=== PATIENT | female | born 1955 | race Caucasian/White ===

== ENCOUNTER 2020-02-23 08:09 | Outpatient (REF) | payer MEDICARE, OTHER, SELFPAY ==
[2020-02-23 11:17] LABS: Hematocrit 42.9 % (37-47); Hemoglobin 13.6 g/dl (12.0-16.0); Mean Corpuscular HGB Conc 31.7 g/dl (31.0-35.0); Mean Corpuscular Hemoglobin 28.8 pg (27.0-33.0); Mean Corpuscular Volume 90.9 fL (80-98); Mean Platelet Volume 9.2 fL (9.4-12.3); Platelet Count 286 X10*3/uL (160-400); Red Blood Count 4.72 X10*6/uL (4.20-5.50); Red Cell Distribution Width 13.2 % (11.0-16.0); White Blood Count 7.4 X10*3/uL (4.8-10.8)
[2020-02-23 11:37] LABS: Glucose Urine UA NEG (NEG); Leukocyte Esterase Urine 2+ (NEG); Nitrite Urine NEG (NEG); PH 5.5 (5.0-8.0); Specific Gravity - Urine >= 1.030 (1.005-1.025); Urine Blood NEG (NEG); Urine Ketones NEG (NEG); Urine Protein NEG (NEG-TRACE)
[2020-02-23 11:46] LABS: Color Urine YELLOW
[2020-02-23 11:47] LABS: Appearance Urine CLOUDY
[2020-02-23 11:52] LABS: Alanine Aminotransferase 21 U/L (0-31); Albumin Level 4.4 g/dL (3.5-5.0); Alkaline Phosphatase 79 U/L (39-117); Anion Gap 14 (12-20); Aspartate Amino Transferase 22 U/L (5-31); Bilirubin Total 0.8 mg/dL (0.0-1.0); Blood Urea Nitrogen 29 mg/dL (9-16); Calcium 9.2 mg/dL (8.4-10.2); Carbon Dioxide 29 mmol/L (22-29); Chloride 101 mmol/L (96-108); Cholesterol 215 mg/dL; Estimated Glomerular Filt Rate > 60; Glucose Fasting 103 mg/dL (60-99); HDL Cholesterol 73 mg/dL; LDL Cholesterol Calculated 125 mg/dl; Potassium 4.4 mmol/l (3.3-5.1); Sodium 140 mmol/L (135-145); Total Protein 7.8 g/dL (6.5-8.0); Triglycerides 85 mg/dL
[2020-02-23 11:57] LABS: TSH reflex Free T4 1.67 mIU/mL (0.32-4.0)
[2020-02-23 12:04] LABS: Amorphous Sediment Urine 4+ /LPF; RBC Urine 0 /HPF (0); Squamous Epithelial Cell Urine TRACE /LPF
== END 2020-02-23 08:10 | disposition home or self-care (01) ==
LOC: HO.HMGCLDS 08:09
PROVIDERS: PCP Internal Medicine; Visit Provider Internal Medicine
DX: Z00.00 Encounter for general adult medical examination without abnormal findings (principal); Z13.220 Encounter for screening for lipoid disorders; Z13.29 Encounter for screening for other suspected endocrine disorder
CPT/HCPCS: 36415; 80053; 80061; 81001; 84443; 85027

== ENCOUNTER 2020-08-28 08:59 | Outpatient (REF) | payer MEDICARE, OTHER, SELFPAY ==
[2020-08-28 10:52] LABS: Alanine Aminotransferase 21 U/L (0-31); Albumin Level 4.3 g/dL (3.5-5.0); Alkaline Phosphatase 80 U/L (39-117); Anion Gap 11 (12-20); Aspartate Amino Transferase 20 U/L (5-31); Bilirubin Total 0.6 mg/dL (0.0-1.0); Blood Urea Nitrogen 21 mg/dL (9-16); Calcium 9.5 mg/dL (8.4-10.2); Carbon Dioxide 31 mmol/L (22-29); Chloride 103 mmol/L (96-108); Cholesterol 216 mg/dL; Estimated Glomerular Filt Rate > 60; Glucose Fasting 108 mg/dL (60-99); HDL Cholesterol 65 mg/dL; LDL Cholesterol Calculated 131 mg/dl; Potassium 4.8 mmol/L (3.3-5.1); Sodium 140 mmol/L (135-145); Total Protein 7.4 g/dL (6.5-8.0); Triglycerides 101 mg/dL
== END 2020-08-28 09:00 | disposition home or self-care (01) ==
LOC: HO.LAB 08:59
PROVIDERS: PCP Internal Medicine; Visit Provider Internal Medicine
DX: Z00.00 Encounter for general adult medical examination without abnormal findings (principal); F41.9 Anxiety disorder, unspecified; E78.5 Hyperlipidemia, unspecified
CPT/HCPCS: 36415; 80053; 80061

== ENCOUNTER 2021-04-24 08:39 | Outpatient (REF) | payer MEDICARE, OTHER, SELFPAY ==
[2021-04-24 11:35] LABS: Alanine Aminotransferase 27 U/L (0-31); Albumin Level 4.3 g/dL (3.5-5.0); Alkaline Phosphatase 71 U/L (39-117); Anion Gap 12 (12-20); Aspartate Amino Transferase 24 U/L (5-31); Bilirubin Total 0.6 mg/dL (0.0-1.0); Blood Urea Nitrogen 23 mg/dL (9-16); Calcium 9.8 mg/dL (8.4-10.2); Carbon Dioxide 30 mmol/L (22-29); Chloride 101 mmol/L (96-108); Cholesterol 223 mg/dL; Estimated Glomerular Filt Rate > 60; Glucose Fasting 103 mg/dL (60-99); HDL Cholesterol 71 mg/dL; LDL Cholesterol Calculated 129 mg/dl; Potassium 4.3 mmol/L (3.3-5.1); Sodium 139 mmol/L (135-145); Total Protein 7.8 g/dL (6.5-8.0); Triglycerides 119 mg/dL
[2021-04-24 11:39] LABS: Estimated Average Glucose 105 mg/dL; Hemoglobin A1c % 5.3 %
[2021-04-24 11:55] LABS: TSH reflex Free T4 1.74 uIU/mL (0.32-4.0)
== END 2021-04-24 08:40 | disposition home or self-care (01) ==
LOC: HO.HMGCLDS 08:39
PROVIDERS: PCP Internal Medicine; Visit Provider Internal Medicine
DX: E78.5 Hyperlipidemia, unspecified (principal); F41.9 Anxiety disorder, unspecified; R73.9 Hyperglycemia, unspecified
CPT/HCPCS: 36415; 80053; 80061; 83036; 84443

== ENCOUNTER 2021-10-29 | Outpatient (REF) | payer MEDICARE, OTHER, SELFPAY ==
--- NOTE | ~2021-10-29 | CT_ITS ---
EXAMINATION: CT ANGIOGRAM OF THE CHEST WITH AND WITHOUT CONTRAST (CT PULMONARY ANGIOGRAM FOR PE) CLINICAL INFORMATION: Shortness of breath. COMPARISON: None TECHNIQUE: Prior to contrast administration, noncontrast localization images were obtained. Subsequently, multidetector volumetric imaging was performed from the thoracic inlet to below the diaphragms following the administration of 80 mL Omnipaque 350 intravenous contrast. No contrast reaction reported Sagittal, coronal, and MIP oblique sagittal reformatted images were obtained on the CT workstation, uploaded to PACS, and reviewed. This CT examination was performed using dose optimization techniques as appropriate, variously including the following: *Automated exposure control *Adjustment of mA and/or kV according to patient size (this includes techniques or standardized protocols for targeted exams where dose is matched to indication/reason for exam; i.e. extremities or head) *Use of iterative reconstruction technique Total exam dose-length product 158 mGy-cm FINDINGS: QUALITY OF STUDY/CONTRAST BOLUS: Satisfactory. PULMONARY ARTERIES: No central or segmental pulmonary emboli. THORACIC AORTA: No aneurysm or dissection. LUNGS/PLEURA/AIRWAYS: Mild elevation of the right diaphragm. Mild left basilar atelectasis. No focal consolidation, nodules or masses. MEDIASTINUM: The visualized thyroid gland is unremarkable. Normal heart size. No pericardial effusion. No hilar or mediastinal lymphadenopathy. No evidence of septal bowing or right heart strain. CHEST WALL/AXILLA: No axillary or internal mammary lymphadenopathy. OSSEOUS STRUCTURES: No acute or suspicious osseous abnormality. UPPER ABDOMEN: Unremarkable. No reflux of contrast into the hepatic veins to suggest elevated right heart pressures. CT/CT angio chest PE protocol IMPRESSION: 1. No evidence for pulmonary embolism. 2. No acute cardiopulmonary process. VTE: Negative.
[2021-10-29] MEDS: iohexoL 350 MG/ML 100 ML INFUS..BTL IV (14:41)
== END 2021-10-29 00:01 ==
LOC: HO.CT
PROVIDERS: PCP Internal Medicine; Visit Provider Internal Medicine
DX: R06.02 Shortness of breath (principal)
CPT/HCPCS: 71275; Q9967

== ENCOUNTER 2021-10-29 10:36 | Outpatient (REF) | payer MEDICARE, OTHER, SELFPAY ==
[2021-10-29 12:23] LABS: Blood Urea Nitrogen 24 mg/dL (9-16); Estimated Glomerular Filt Rate > 60
[2021-10-29 17:16] LABS: D Dimer High Sensitivity 166 NG/ML
== END 2021-10-29 10:37 | disposition home or self-care (01) ==
LOC: HO.HMGCLDS 10:36
PROVIDERS: PCP Internal Medicine; Visit Provider Internal Medicine
DX: R06.02 Shortness of breath (principal)
CPT/HCPCS: 36415; 82565; 84520; 85379

== ENCOUNTER 2022-02-19 08:46 | Outpatient (REF) | payer MEDICARE, OTHER, SELFPAY ==
[2022-02-19 11:23] LABS: MANUAL DIFF FLAG NO
[2022-02-19 11:48] LABS: Basophils Percent Auto 0.6 % (0-2); Eosinophils Absolute Auto 0.5 X10*3/uL (0.0-0.4); Eosinophils Percent Auto 6.9 % (0-4); Hematocrit 42.6 % (37.0-47.0); Hemoglobin 13.9 g/dl (12.0-16.0); Imm Gran Abs Auto 0.02 X10*3/uL (0.00-0.03); Imm Gran Pct Auto 0.3 % (0.0-0.4); Lymphocytes Absolute Auto 1.9 X10*3/uL (1.2-4.9); Mean Corpuscular HGB Conc 32.6 g/dl (31.0-35.0); Mean Corpuscular Hemoglobin 28.5 pg (27.0-33.0); Mean Corpuscular Volume 87.5 fL (80.0-98.0); Mean Platelet Volume 9.4 fL (9.4-12.3); Monocytes Absolute Auto 0.5 X10*3/uL (0.1-1.2); Monocytes Percent Auto 7.9 % (2-11); Neutrophils Absolute Auto 3.6 x10*3/uL (2.0-8.3); Neutrophils Percent Auto 55.3 % (45-73); Platelet Count 263 X10*3/uL (160-400); Red Blood Count 4.87 X10*6/uL (4.20-5.50); Red Cell Distribution Width 13.2 % (11.0-16.0); White Blood Count 6.5 X10*3/uL (4.8-10.8)
[2022-02-19 11:49] LABS: B Type Natriuretic Peptide < 10 pg/mL (<100)
[2022-02-19 12:35] LABS: Alanine Aminotransferase 23 U/L (0-31); Albumin Level 4.5 g/dL (3.5-5.0); Alkaline Phosphatase 75 U/L (39-117); Anion Gap 10 (12-20); Aspartate Amino Transferase 20 U/L (5-31); Bilirubin Total 0.7 mg/dL (0.0-1.0); Blood Urea Nitrogen 25 mg/dL (9-16); Calcium 10.1 mg/dL (8.4-10.2); Carbon Dioxide 32 mmol/L (22-29); Chloride 102 mmol/L (96-108); Cholesterol 200 mg/dL; Estimated Glomerular Filt Rate > 60; Glucose Fasting 106 mg/dL (60-99); HDL Cholesterol 69 mg/dL; LDL Cholesterol Calculated 114 mg/dl; Potassium 4.4 mmol/L (3.3-5.1); Sodium 140 mmol/L (135-145); TSH reflex Free T4 1.45 uIU/mL (0.32-4.0); Total Protein 7.9 g/dL (6.5-8.0); Triglycerides 87 mg/dL
== END 2022-02-19 08:47 | disposition home or self-care (01) ==
LOC: HO.HMGCLDS 08:46
PROVIDERS: PCP Internal Medicine; Visit Provider Internal Medicine
DX: Z00.00 Encounter for general adult medical examination without abnormal findings (principal); R06.02 Shortness of breath; I10 Essential (primary) hypertension; R73.9 Hyperglycemia, unspecified
CPT/HCPCS: 36415; 80053; 80061; 83880; 84443; 85025

== ENCOUNTER 2022-06-16 15:47 | Outpatient (REF) | payer MEDICARE, OTHER, SELFPAY ==
--- NOTE | 2022-06-16 17:30 | PFT_ITS ---
FLOWS: 1. FEV1 of 69% of predicted at 2.05 L. 2. FVC 61% of predicted at 2.35 L. 3. FEV1 to FVC ratio of 0.87. 4. No bronchodilator response. LUNG VOLUMES: 1. Total lung capacity 69% of predicted at 4.15 L. 2. Residual volume 66% of predicted at 1.63 L. 3. Slow vital capacity 71% of predicted at 2.52 L. 4. Expiratory reserve volume 32% of predicted at 0.32 L. 5. Diffusion capacity is mildly decreased. 6. Diffusion capacity corrects to normal after adjustment for alveolar ventilation. IMPRESSION: Moderate restrictive ventilatory defect with no bronchodilatory response. Decreased expiratory reserve volume suggests extrathoracic restriction, likely secondary to abdominal obesity. Decreased diffusion capacity, restrictive ventilatory defects suggest underlying pulmonary parenchymal disease. Clinical correlation is advised. MD LINDA Wade/MODL / [id number]
== END 2022-06-16 15:48 | disposition home or self-care (01) ==
LOC: HO.RESP 15:47
PROVIDERS: PCP Internal Medicine; Visit Provider Internal Medicine
DX: J45.909 Unspecified asthma, uncomplicated (principal)
CPT/HCPCS: 94060; 94727; 94729

== ENCOUNTER 2022-10-05 11:01 | Outpatient (AMB) | payer MEDICARE, OTHER, SELFPAY ==
[2022-10-05 11:02] VITALS: BP 128/78; PULSE 100; O2SAT 95; BMI 36.3
--- NOTE | 2022-10-05 11:02 | A.OFFPC_ITS ---
Vital Signs 10/05/22 11:02 Height 5 ft 10 in Weight 253 lb BMI 36.3 BP 128/78 Blood Pressure Location Lt brachial Position Sitting Pulse 100 Pulse Source Pulse Oximeter Pulse Oximetry (%) 95 Oxygen Delivery Method Room Air Intake Visit Reasons: 4 month follow up, hyperlipidemia, asthma Allergies penicillin G Allergy (Unknown, Verified 10/05/22 11:03) rash/change in personality citalopram Adverse Reaction (Unknown, Verified 10/05/22 11:03) nose bleed From PEN-VEE K Allergy (Severe, Uncoded 05/28/22 11:07) RASH, SOB Medication List - Last Reconciled 10/05/22 by Nava Pat MD albuterol sulfate 90 mcg/actuation (ProAir HFA) 1 inh inhalation QID aspirin 81 mg PO DAILY Flovent HFA 110 mcg/actuation (fluticasone propionate) 1 puff inhalation BID NS flu vac 2020 [id number](PF) 60 mcg (15 mcg x 4)/0.5 mL 0.5 mL IM DIRECTED fluticasone propionate 50 mcg/actuation 1 spray intranasal DAILY hydroxyzine HCl 10 mg PO BEDTIME PRN oiagkjqifrqt-qvuj-lrhla acid 18-400 mg-mcg (Centrum Women) 1 tab PO DAILY naproxen sodium (Aleve) 220 mg PO BID PRN pneumoc 13-prakash conj-dip cr(PF) 0.5 mL IM DIRECTED scopolamine base 1 patch transdermal Q3D PRN sertraline 100 mg (2 x 50 mg) PO DAILY Tobacco use date assessed: 10/05/22 Fall risk assessment: No Falls in past year Last assessed Fall Risk: 10/05/22 Dental Screening Dental Screen Date: 10/05/22 Did you have a dental visit in the last 12 months?: Yes Did you have a dental problem in the last 6 months where you did not have access to dental care?: No Was dental information given to patient?: No HPI 4 month follow up, hyperlipidemia, asthma HPI Details Pt presents for f/u asthma better on Flovent. Pt c/o left-sided lower back and L buttock pain worse when lying on the L side. Patient denies pain radiating to lower extremities or while walking. [facility] Medical History Abnormal colonoscopy Annual physical exam Anxiety Asthma Asthmatic bronchitis HTN (hypertension) Hyperglycemia Hyperlipidemia Mammogram normal Normal Pap smear Palpitation Surgical History H/O colonoscopy History of bilateral knee replacement History of foot surgery History of knee surgery Family History Father Dementia Parkinson disease Mother Dementia Mental health disorder Brother No problems noted. Son No problems noted. Son No problems noted. Daughter No problems noted. Social History Housing: House Alcohol intake: current Alcohol intake frequency: a few times a week Patient Tobacco Use Status: Never used Tobacco e-Cigarette/Vaping Use: Never Used Second Hand Smoke Exposure: Yes service: No Current occupational status: retired Cognitive needs: No Hearing needs: No Vision needs: No Questionnaire Thrive Questionnaire Date Thrive assessed: 03/26/22 AUDIT C Alcohol Use Questionnaire (AUDIT-C) 1. How often do you have a drink containing alcohol?: Never 3. How often do you have six or more drinks on one occasion?: Never Total Score: 0 Score Reviewed/Action Taken: Yes MARCELO-7 AMB Questionnaire MARCELO-7 Date MARCELO - 7 assessed: 04/28/21 Source: Developed by Drs. Stanley Aquino, Fifi Lucero, Brandon Mcrae and colleagues, with an educational luke from [employer]. Review of Systems Const All systems reviewed & are unremarkable except as noted in HPI and below Reports no additional complaints Eyes Reports no additional complaints ENT Reports no additional complaints Card Reports no additional complaints Resp Reports no additional complaints GI Reports no additional complaints Reports no additional complaints Physical exam (Primary Care) Vital Signs: Last Vital Signs Pulse 100 10/05/22 11:02 BP 128/78 10/05/22 11:02 Pulse Ox 95 10/05/22 11:02 Oxygen Delivery Method Room Air 10/05/22 11:02 BMI result Body Mass Index 36.3 Tobacco/Smoking Status: Tobacco use Status Tobacco use date assessed 10/05/22 10/05/22 11:04 Patient Tobacco Use Status Never used Tobacco 10/05/22 11:04 e-Cigarette/Vaping Use Never Used 10/05/22 11:04 Thrive Assessment: Date of Thrive Assessment Date Thrive assessed 03/26/22 10/05/22 11:04 Const General: no acute distress HENMT Face and sinus: Yes normal facial exam Neck Neck: Yes supple Resp Effort & Inspection: normal respiratory effort Auscultation: clear to auscultation bilaterally Cardio Rhythm: regular rhythm Heart sounds: S1 normal heart sound present and S2 normal heart sound present GI Inspection: Yes normal to inspection Palpation (GI): Soft to palpation Percussion: Yes normal to percussion Back/Spine/Pelvis Other: Slightly decreased range of motion lumbar spine, straight leg rising 90 degrees bilaterally, slight tenderness over left SI joint, full range of motion of both hips Assessment and Plan Assessment & Plan (1) Asthma: Comment: PFT's 07/2015 Mild obstructive airway disorder, improves with broncho, mild restrictive pulmonary disease Code(s): J45.909 - Unspecified asthma, uncomplicated (2) Hyperglycemia: Code(s): R73.9 - Hyperglycemia, unspecified Plan: Continue ADA diet, check A1c in 6 months before the physical (3) Sciatica: Code(s): M54.30 - Sciatica, unspecified side Plan: Meloxicam and baclofen are prescribed. patient was given lower back exercises. Patient will referred for PT if not improved Orders: Orders Comprehensive [place]. Panel Fast 6 Months E78.5 - Hyperlipidemia, unspecified, I10 - Essential (primary) hypertension, R73.9 - Hyperglycemia, unspecified, Z00.00 - Encounter for general adult medical examination without abnormal findings Hemoglobin A1c 6 Months E78.5 - Hyperlipidemia, unspecified, I10 - Essential (primary) hypertension, R73.9 - Hyperglycemia, unspecified, Z00.00 - Encounter for general adult medical examination without abnormal findings Lipid Panel 6 Months E78.5 - Hyperlipidemia, unspecified, I10 - Essential (primary) hypertension, R73.9 - Hyperglycemia, unspecified, Z00.00 - Encounter for general adult medical examination without abnormal findings TSH reflex Free T4 6 Months E78.5 - Hyperlipidemia, unspecified, I10 - Essential (primary) hypertension, R73.9 - Hyperglycemia, unspecified, Z00.00 - Encounter for general adult medical examination without abnormal findings Complete Blood Count Auto Diff 6 Months E78.5 - Hyperlipidemia, unspecified, I10 - Essential (primary) hypertension, R73.9 - Hyperglycemia, unspecified, Z00.00 - Encounter for general adult medical examination without abnormal findings Medications: New meloxicam 15 mg PO DAILY 10 tabs 0RF baclofen 10 mg PO BEDTIME 14 tabs 0RF Refilled sertraline 100 mg (2 x 50 mg) PO DAILY 180 tabs 3RF Coding Level of Care Code Est Pt Level 4 (80150) Diagnoses Asthma J45.909 Hyperglycemia R73.9 Sciatica M54.30
== END 2022-10-05 11:48 | disposition home or self-care (01) ==
PROVIDERS: PCP Internal Medicine; Visit Provider Internal Medicine
DX: J45.909 Unspecified asthma, uncomplicated (principal); R73.9 Hyperglycemia, unspecified; M54.30 Sciatica, unspecified side
CPT/HCPCS: 99214

== ENCOUNTER 2023-03-29 09:06 | Outpatient (REF) | payer MEDICARE, OTHER, SELFPAY ==
[2023-03-29 10:55] LABS: MANUAL DIFF FLAG NO
[2023-03-29 11:08] LABS: Basophils Absolute Auto 0.1 X10*3/uL (0.0-0.2); Basophils Percent Auto 0.8 % (0-2); Eosinophils Absolute Auto 0.3 X10*3/uL (0.0-0.4); Hematocrit 40.6 % (37.0-47.0); Hemoglobin 13.4 g/dl (12.0-16.0); Imm Gran Abs Auto 0.02 X10*3/uL (0.00-0.03); Imm Gran Pct Auto 0.3 % (0.0-0.4); Lymphocytes Absolute Auto 1.8 X10*3/uL (1.2-4.9); Lymphocytes Percent Auto 27.7 % (20-40); Mean Corpuscular Hemoglobin 29.3 pg (27.0-33.0); Mean Corpuscular Volume 88.6 fL (80.0-98.0); Mean Platelet Volume 9.2 fL (9.4-12.3); Monocytes Absolute Auto 0.5 X10*3/uL (0.1-1.2); Monocytes Percent Auto 7.9 % (2-11); Neutrophils Absolute Auto 3.9 x10*3/uL (2.0-8.3); Neutrophils Percent Auto 59.3 % (45-73); Platelet Count 244 X10*3/uL (160-400); Red Blood Count 4.58 X10*6/uL (4.20-5.50); Red Cell Distribution Width 13.6 % (11.0-16.0); White Blood Count 6.5 X10*3/uL (4.8-10.8)
[2023-03-29 11:17] LABS: Estimated Average Glucose 100 mg/dL; Hemoglobin A1c % 5.1 % (<6.0)
[2023-03-29 11:27] LABS: Alanine Aminotransferase 20 U/L (0-31); Albumin Level 4.2 g/dL (3.5-5.0); Alkaline Phosphatase 72 U/L (39-117); Anion Gap 10 (12-20); Aspartate Amino Transferase 21 U/L (5-31); Bilirubin Total 0.6 mg/dL (0.0-1.0); Blood Urea Nitrogen 28 mg/dL (9-16); Calcium 10.4 mg/dL (8.4-10.2); Carbon Dioxide 29 mmol/L (22-29); Chloride 104 mmol/L (96-108); Cholesterol 195 mg/dL (<200); Estimated Glomerular Filt Rate > 60; Glucose Fasting 110 mg/dL (60-99); HDL Cholesterol 65 mg/dL (>40); LDL Cholesterol Calculated 116 mg/dL (<100); Potassium 4.2 mmol/L (3.3-5.1); Sodium 139 mmol/L (135-145); Total Protein 7.8 g/dL (6.5-8.0); Triglycerides 73 mg/dL (<150)
[2023-03-29 11:48] LABS: TSH reflex Free T4 1.46 uIU/mL (0.32-4.0)
== END 2023-03-29 09:07 | disposition home or self-care (01) ==
LOC: HO.HMGCLDS 09:06
PROVIDERS: PCP Internal Medicine; Visit Provider Internal Medicine
DX: Z00.00 Encounter for general adult medical examination without abnormal findings (principal); R73.9 Hyperglycemia, unspecified; I10 Essential (primary) hypertension; E78.5 Hyperlipidemia, unspecified
CPT/HCPCS: 36415; 80053; 80061; 83036; 84443; 85025

== ENCOUNTER 2023-03-31 10:24 | Outpatient (AMB) | payer MEDICARE, OTHER, SELFPAY ==
[2023-03-31 10:29] VITALS: BP 140/80; PULSE 85; O2SAT 98; BMI 36.2
--- NOTE | 2023-03-31 10:29 | MHC.PC.OV ---
Vital Signs 03/31/23 10:29 Height 5 ft 10 in Weight 252 lb BMI 36.2 BP 140/80 H Blood Pressure Location Lt brachial Position Sitting Pulse 85 Pulse Source Pulse Oximeter Pulse Oximetry (%) 98 Oxygen Delivery Method Room Air Intake Visit Reasons: PE Intake Note: Pt is here today for PE. Allergies penicillin G Allergy (Unknown, Verified 03/31/23 10:34) rash/change in personality citalopram Adverse Reaction (Unknown, Verified 03/31/23 10:34) nose bleed From PEN-VEE K Allergy (Severe, Uncoded 03/31/23 10:34) RASH, SOB Medication List - Last Reconciled 03/31/23 by Nava Pat MD albuterol sulfate 90 mcg/actuation (ProAir HFA) 1 inh inhalation QID aspirin 81 mg PO DAILY Flovent HFA 110 mcg/actuation (fluticasone propionate) 1 puff inhalation BID NS flu vac 2020 [id number](PF) 60 mcg (15 mcg x 4)/0.5 mL 0.5 mL IM DIRECTED fluticasone propionate 50 mcg/actuation 1 spray intranasal DAILY hydroxyzine HCl 10 mg PO BEDTIME PRN segrfupxbkor-qqdd-qydrj acid 18-400 mg-mcg (Centrum Women) 1 tab PO DAILY naproxen sodium (Aleve) 220 mg PO BID PRN scopolamine base 1 patch transdermal Q3D PRN sertraline 100 mg (2 x 50 mg) PO DAILY Tobacco use date assessed: 03/31/23 Fall risk assessment: No Falls in past year Last assessed Fall Risk: 03/31/23 Dental Screening Dental Screen Date: 03/31/23 Did you have a dental visit in the last 12 months?: Yes Did you have a dental problem in the last 6 months where you did not have access to dental care?: No Was dental information given to patient?: Patient has dentist HPI PE HPI Details Pt presents for PE. Asthma is stable on Flovent. Patient has started exercising 4 times a week and has noticed improved exercise tolerance when walking up the stairs. [facility] Medical History Hyperglycemia HTN (hypertension) Mammogram normal Normal Pap smear Hyperlipidemia Abnormal colonoscopy Anxiety Asthma Asthmatic bronchitis Palpitation Annual physical exam Surgical History H/O colonoscopy History of bilateral knee replacement History of foot surgery History of knee surgery Family History Father Dementia Parkinson disease Mother Dementia Mental health disorder Brother No problems noted. Son No problems noted. Son No problems noted. Daughter No problems noted. Social History Housing: House Alcohol intake: current Alcohol intake frequency: a few times a week Patient Tobacco Use Status: Never used Tobacco e-Cigarette/Vaping Use: Never Used Second Hand Smoke Exposure: Yes service: No Current occupational status: retired Cognitive needs: No Hearing needs: No Vision needs: No Questionnaire Thrive Questionnaire Date Thrive assessed: 03/26/22 AUDIT C Alcohol Use Questionnaire (AUDIT-C) 1. How often do you have a drink containing alcohol?: 4 or more times a week 2. How many drinks containing alcohol do you have on a typical day when you are drinking?: 1 or 2 3. How often do you have six or more drinks on one occasion?: Never Total Score: 4 MARCELO-7 AMB Questionnaire MARCELO-7 Date MARCELO - 7 assessed: 04/28/21 Feeling nervous, anxious, or on edge: 1 = Several days Not being able to stop or control worryin = Several days Worrying too much about different things: 1 = Several days Trouble relaxin = Several days Being so restless that it is hard to sit still: 0 = Not at all Becoming easily annoyed or irritable: 0 = Not at all Feeling afraid as if something awful might happen: 1 = Several days Total MARCELO-7 score (0-4 normal; 5-9 mild; 10-14 moderate; 15-21 severe): 5 Source: Developed by Drs. Stanley Aquino, Fifi Lucero, Brandon Mcrae and colleagues, with an educational luke from [employer]. Review of Systems Const All systems reviewed & are unremarkable except as noted in HPI and below Reports no additional complaints Eyes Reports no additional complaints ENT Reports no additional complaints Card Reports no additional complaints Resp Reports no additional complaints GI Reports no additional complaints Reports no additional complaints Physical exam (Primary Care) Vital Signs: Last Vital Signs Pulse 85 03/31/23 10:29 BP 140/80 H 03/31/23 10:29 Pulse Ox 98 03/31/23 10:29 Oxygen Delivery Method Room Air 03/31/23 10:29 BMI result Body Mass Index 36.2 Tobacco/Smoking Status: Tobacco use Status Tobacco use date assessed 03/31/23 03/31/23 10:41 Patient Tobacco Use Status Never used Tobacco 03/31/23 10:41 e-Cigarette/Vaping Use Never Used 03/31/23 10:31 Thrive Assessment: Date of Thrive Assessment Date Thrive assessed 03/26/22 03/31/23 10:31 Const General: no acute distress HENMT Head: Yes normal to inspection Ears: hearing grossly normal bilaterally Face and sinus: Yes normal facial exam Mouth: Normal oral and palatal mucosa present Throat: Yes posterior oropharynx normal Eyes General: appearance normal, both eyes and all related structures Neck Neck: Yes no lymphadenopathy and Yes supple Resp Effort & Inspection: normal respiratory effort Auscultation: clear to auscultation bilaterally Cardio Rhythm: regular rhythm Heart sounds: S1 normal heart sound present, S2 normal heart sound present and Murmur heart sound present systolic II/ GI Inspection: Yes normal to inspection Palpation (GI): Soft to palpation Percussion: Yes normal to percussion Auscultation: normal bowel sounds Assessment and Plan Assessment & Plan (1) Asthma: Comment: PFT's 07/2015 Mild obstructive airway disorder, improves with broncho, mild restrictive pulmonary disease Code(s): J45.909 - Unspecified asthma, uncomplicated Plan: Continue Flovent, check PFT (2) SOB (shortness of breath): Code(s): R06.02 - Shortness of breath (3) HTN (hypertension): Comment: off atenolol Code(s): I10 - Essential (primary) hypertension Plan: Low-sodium diet increase physical activity weight loss discussed with the patient follow-up in 4 months (4) Hyperglycemia: Code(s): R73.9 - Hyperglycemia, unspecified Plan: ADA diet increase exercise weight loss discussed with the patient (5) Annual physical exam: Code(s): Z00.00 - Encounter for general adult medical examination without abnormal findings Plan: Well-balanced diet regular physical activity weight loss discussed with the patient. She is up-to-date with mammogram at [facility] and colonoscopy (6) Heart murmur: Code(s): R01.1 - Cardiac murmur, unspecified Plan: Obtain echo Orders: Orders PFT pulmonary function test Today J45.909 - Unspecified asthma, uncomplicated, R06.02 - Shortness of breath CA echo transthoracic complete Today R01.1 - Cardiac murmur, unspecified Coding Level of Care Code Est Pt Prev Care >65y(54874) Diagnoses Asthma J45.909 SOB (shortness of breath) R06.02 HTN (hypertension) I10 Hyperglycemia R73.9 Annual physical exam Z00.00 Heart murmur R01.1
== END 2023-03-31 11:25 | disposition home or self-care (01) ==
PROVIDERS: PCP Internal Medicine; Visit Provider Internal Medicine
DX: Z00.00 Encounter for general adult medical examination without abnormal findings (principal); J45.909 Unspecified asthma, uncomplicated; R06.02 Shortness of breath; I10 Essential (primary) hypertension; R73.9 Hyperglycemia, unspecified; R01.1 Cardiac murmur, unspecified
CPT/HCPCS: 99397

== ENCOUNTER → 2023-05-25 14:47 | Outpatient (REF) | payer MEDICARE, OTHER, SELFPAY ==
--- NOTE | 2023-05-25 14:51 | CA_ITS ---
Transthoracic Echocardiogram Patient (Last, First, Middle): Sruthi Delaney J Gender: Female Date of : 1955 Age: 67 Procedure Date: 05/25/2023 Procedure Type: Transthoracic Echocardiogram Location: OP Height: 177.8 cm Weight: 114.31 kg BSA: 2.30 m2 Heart Rate: 65 bpm BP: 118 / 72 mmHg [employer] Machine Operator: SB Referring MD: Nava Pat MD Energy Audit Advisor: Luis Padilla MD Symptoms: CARDIAC MURMUR, UNSPEC Study Quality: Adequate w contrast ECG Rhythm: Sinus Conclusions: - 1. Normal LV ejection fraction with LVEF of 55-60% with grade 1 diastolic dysfunction 2. Normal cardiac valvular Dopplers 3. Upper limits of normal ascending aortic size at 3.6 cm 4. Normal RV systolic pressure 5. No gross pericardial effusion Findings Procedure Information Contrast agent, definity, is being given per protocol without apparent complications. Left Ventricle Normal left ventricular size, thickness, and systolic function. The visually estimated ejection fraction is between 55-60%. Spectral Doppler is indicative of an impaired relaxation filling pattern. E/E prime ratio is <8, consistent with normal filling pressures. Evidence suggests grade I (mild) diastolic dysfunction. Right Ventricle Normal right ventricular cavity size and systolic function. Atria The left atrium is likely dilated. There is no evidence of interatrial shunt. The right atrium is normal in size. Aortic Valve Normal aortic valve structure and function. There is no aortic valve stenosis. There is no aortic valve regurgitation. Mitral Valve Normal mitral valve structure and function. There is trace mitral valve regurgitation. There is no mitral valve stenosis. Pulmonic Valve The pulmonic valve is likely normal. There is trace pulmonic valve regurgitation. Tricuspid Valve Normal tricuspid valve structure. There is trace tricuspid valve regurgitation. The right ventricular systolic pressure is normal. The right ventricular systolic pressure is 20 mmHg. Normal right atrial pressure. There is no evidence of pulmonary hypertension. Great Vessels The pulmonary artery was not well visualized. Venous The inferior vena cava is normal in size and collapses greater than 50% with inspiration. Pericardium/Pleural There is no evidence of pericardial effusion. Prior Study Comparison No significant change compared to prior study dated: 05/04/2017. Measurements 2D Linear Measurements IVSd: 1.03 0.6-0.9/0.6-1.0 cm LVIDd: 4.80 3.9-5.3/4.2-5.9 cm LVIDd Index: 2.09 2.4-3.2/2.2-3.1 cm/m2 LVIDs: 2.96 2.0-3.6 cm LVPWd: 0.88 0.7-1.1 cm LA Diam: 4.10 2.7-3.8/3.0-4.0 cm LAIDs Index: 1.78 1.5-2.3 cm/m2 LV Mass: 198.48 67-162/88-224 g LV Mass Index: 86.30 43-95/49-115 g/m2 LVOT Diam: 2.30 3.0+(-)1.3 cm 2D Systolic Function EF 4C: 64.60 >55% EF 2C: 53.00 >55% EF BiP: 58.50 >55% Mitral Valve MV Pk E: 0.57 MV PK A: 0.78 MV Decel Time: 247.00 E/A: 0.70 E'Lateral: 7.29 E'Medial: 5.87 E/E' Med: 9.70 E/E' Lat: 7.80 PHT: 72.00 MVA PHT: 3.06 Decel [place]: 2.31 Aortic Valve AoV Pk Rpavin: 1.41 AoV Pk Grad: 8.00 COLIN: 3.00 LVOT LVOT Pk Pravin: 1.03 LVOT Mn Pravin: 0.71 LVOT VTI: 0.23 LVOT Pk Grad: 4.00 LVOT Mn Grad: 2.00 LVOT Diam: 2.30 LVOT Area: 4.15 Diastolic Function MV Pk E: 0.57 MV Pk A: 0.78 E/A: 0.70 E'Medial: 5.87 E/E' Med: 9.70 E' Laterial: 7.29 E/E' Lat: 7.80 Right Ventricle TAPSE (mm): 30.60 TVS' Pravin: 13.80 Tricuspid Valve TR Pk Pravin: 2.08 TR Pk Grad: 17.00 RA Press: 3.00 RVSP: 20.00 Great Vessels Aorta Sinus of Valsalva: 3.10 2.0-3.5 cm Ao Asc: 3.60 2.1-3.4 cm Pulmonary Veins Pulm Vein S/D 1.40 Pulmonary Valve PV Pk Pravin: 0.95 Peak PV Grad: 4.00 Updated in Other Vendor System with Status of Final Luis Padilla MD electronically signed on 05/26/2023 3:09:42 PM with status of Final
== END ==
LOC: HO.CARD 14:47
PROVIDERS: PCP Internal Medicine; Visit Provider Internal Medicine
DX: R01.1 Cardiac murmur, unspecified (principal)
CPT/HCPCS: 93306; Q9957

== ENCOUNTER → 2023-05-25 14:51 | Outpatient (BNV) | payer MEDICARE, OTHER, SELFPAY | PROVIDERS: PCP Internal Medicine; Visit Provider Internal Medicine Cardiovascular Disease | DX: I51.9 Heart disease, unspecified (principal); R01.1 Cardiac murmur, unspecified | CPT/HCPCS: 93306 ==

== ENCOUNTER 2023-08-03 08:39 | Outpatient (REF) | payer MEDICARE, OTHER, SELFPAY ==
[2023-08-03 10:28] LABS: MANUAL DIFF FLAG NO
[2023-08-03 10:36] LABS: Basophils Percent Auto 0.6 % (0-2); Eosinophils Absolute Auto 0.4 X10*3/uL (0.0-0.4); Eosinophils Percent Auto 5.9 % (0-4); Hematocrit 40.8 % (37.0-47.0); Hemoglobin 13.7 g/dl (12.0-16.0); Imm Gran Abs Auto 0.03 X10*3/uL (0.00-0.03); Imm Gran Pct Auto 0.5 % (0.0-0.4); Lymphocytes Absolute Auto 1.9 X10*3/uL (1.2-4.9); Lymphocytes Percent Auto 27.9 % (20-40); Mean Corpuscular HGB Conc 33.6 g/dl (31.0-35.0); Mean Corpuscular Volume 89.3 fL (80.0-98.0); Mean Platelet Volume 9.2 fL (9.4-12.3); Monocytes Absolute Auto 0.5 X10*3/uL (0.1-1.2); Monocytes Percent Auto 7.7 % (2-11); Neutrophils Absolute Auto 3.8 x10*3/uL (2.0-8.3); Neutrophils Percent Auto 57.4 % (45-73); Platelet Count 234 X10*3/uL (160-400); Red Blood Count 4.57 X10*6/uL (4.20-5.50); Red Cell Distribution Width 13.7 % (11.0-16.0); White Blood Count 6.7 X10*3/uL (4.8-10.8)
[2023-08-03 10:47] LABS: Estimated Average Glucose 103 mg/dL; Hemoglobin A1c % 5.2 % (<6.0)
[2023-08-03 10:58] LABS: Alanine Aminotransferase 21 U/L (0-31); Albumin Level 4.3 g/dL (3.5-5.0); Alkaline Phosphatase 77 U/L (39-117); Anion Gap 12 (12-20); Aspartate Amino Transferase 23 U/L (5-31); Bilirubin Total 0.6 mg/dL (0.0-1.0); Blood Urea Nitrogen 29 mg/dL (9-16); Calcium 9.9 mg/dL (8.4-10.2); Carbon Dioxide 28 mmol/L (22-29); Chloride 106 mmol/L (96-108); Estimated Glomerular Filt Rate > 60; Glucose Fasting 104 mg/dL (60-99); Potassium 4.1 mmol/L (3.3-5.1); Sodium 142 mmol/L (135-145); Total Protein 7.9 g/dL (6.5-8.0)
== END 2023-08-03 08:40 | disposition home or self-care (01) ==
LOC: HO.HMGCLDS 08:39
PROVIDERS: PCP Internal Medicine; Visit Provider Internal Medicine
DX: R73.9 Hyperglycemia, unspecified (principal); I10 Essential (primary) hypertension; E78.5 Hyperlipidemia, unspecified
CPT/HCPCS: 36415; 80053; 83036; 85025

== ENCOUNTER 2023-08-04 10:58 | Outpatient (AMB) | payer MEDICARE, OTHER, SELFPAY ==
--- NOTE | 2023-08-04 11:03 | MHC.PC.OV ---
Vital Signs 08/04/23 11:05 Height 5 ft 10 in Weight 254 lb BMI 36.4 BP 124/70 Blood Pressure Location Lt brachial Position Sitting Pulse 89 Pulse Source Pulse Oximeter Pulse Oximetry (%) 96 Oxygen Delivery Method Room Air Intake Visit Reasons: 4 Month F/U Intake Note: Pt is here today for 4 months follow up visit. Allergies penicillin G Allergy (Unknown, Verified 08/04/23 11:07) rash/change in personality citalopram Adverse Reaction (Unknown, Verified 08/04/23 11:07) nose bleed From PEN-VEE K Allergy (Severe, Uncoded 08/04/23 11:07) RASH, SOB Medication List - Last Reconciled 08/04/23 by Nava Pat MD albuterol sulfate 90 mcg/actuation (ProAir HFA) 1 inh inhalation QID Arnuity Ellipta 100 mcg/actuation (fluticasone furoate) 1 inh inhalation DAILY NS aspirin 81 mg PO DAILY flu vac 2020 [id number](PF) 60 mcg (15 mcg x 4)/0.5 mL 0.5 mL IM DIRECTED fluticasone propionate 50 mcg/actuation 1 spray intranasal DAILY hydroxyzine HCl 10 mg PO BEDTIME PRN [id number]-[id number]-tveiv acid 18-400 mg-mcg (Centrum Women) 1 tab PO DAILY naproxen sodium (Aleve) 220 mg PO BID PRN scopolamine base 1 patch transdermal Q3D PRN sertraline 100 mg (2 x 50 mg) PO DAILY Tobacco use date assessed: 03/31/23 Dental Screening Dental Screen Date: 03/31/23 HPI 4 Month F/U HPI Details Pt presents for f/u asthma and chronic anxiety controlled on current medications. Patient is planning a trip to [place] this summer. She has been exercising regularly and denies chest pain shortness for breath palpitations. [facility] Medical History (Updated 08/04/23 @ 11:59 by Nava Pat MD) Hyperglycemia Mammogram normal Normal Pap smear Hyperlipidemia Abnormal colonoscopy Anxiety Asthma Asthmatic bronchitis Palpitation Annual physical exam Surgical History H/O colonoscopy History of bilateral knee replacement History of foot surgery History of knee surgery Family History Father Dementia Parkinson disease Mother Dementia Mental health disorder Brother No problems noted. Son No problems noted. Son No problems noted. Daughter No problems noted. Social History Housing: House Alcohol intake: current Alcohol intake frequency: a few times a week Patient Tobacco Use Status: Never used Tobacco e-Cigarette/Vaping Use: Never Used Second Hand Smoke Exposure: Yes service: No Current occupational status: retired Cognitive needs: No Hearing needs: No Vision needs: No Questionnaire PHQ-9 Over the last 2 weeks, how often have you been bothered by any of the following problems? 1. Little interest or pleasure in doing things: not at all 2. Feeling down, depressed, or hopeless: not at all 3. Trouble falling or staying asleep, or sleeping too much: several days 4. Feeling tired or having little energy: not at all 5. Poor appetite or overeating: several days 6. Feeling bad about yourself - or that you are a failure or have let yourself or your family down: not at all 7. Trouble concentrating on things, such as reading the newspaper or watching television: not at all 8. Moving or speaking so slowly that other people could have noticed. Or the opposite - being so fidgety or restless that you have been moving around a lot more than usual: not at all 9. Thoughts that you would be better off or of hurting yourself in some way: not at all Total score: 2 Depression Screening Interpretation: Negative Depression Screening Done: Yes Source: Developed by Drs. Stanley Aquino, Fifi Lucero, Brandon Mcrae and colleagues, with an educational luke from [employer]. Thrive Questionnaire Date Thrive assessed: 08/04/23 I am a: Patient What is your living situation today?: I have a steady place to live Within the past 12 months, did the food you bought not last and you didn't have the money to get more?: Never true Within the past 12 months, did you worry whether your food would run out before you got money to buy more?: Never true Do you have trouble paying for medicines?: No Do you have trouble getting transportation to medical appointments?: No Do you have trouble paying your heating and electricity bill?: No Do you have trouble taking care of your child, family member or friend?: No Do you have trouble with day-to-day activities such as bathing, preparing meals, shopping, managing finances, etc.?: No Are you currently unemployed and looking for a job?: No Are you interested in more education?: No Please select the resources that you would like help with: None THRIVE Score: 0 MARCELO-7 AMB Questionnaire MARCELO-7 Date MARCELO - 7 assessed: 08/04/23 Feeling nervous, anxious, or on edge: 0 = Not at all Not being able to stop or control worryin = Not at all Worrying too much about different things: 0 = Not at all Trouble relaxin = Not at all Being so restless that it is hard to sit still: 0 = Not at all Becoming easily annoyed or irritable: 0 = Not at all Feeling afraid as if something awful might happen: 0 = Not at all Total MARCELO-7 score (0-4 normal; 5-9 mild; 10-14 moderate; 15-21 severe): 0 Source: Developed by Drs. Stanley Aquino, Fifi Lucero, Brandon Mcrae and colleagues, with an educational luke from [employer]. Review of Systems Const All systems reviewed & are unremarkable except as noted in HPI and below ENT Reports no additional complaints Card Reports no additional complaints Resp Reports no additional complaints GI Reports no additional complaints Physical exam (Primary Care) Vital Signs: Last Vital Signs Pulse 89 08/04/23 11:05 BP 124/70 08/04/23 11:05 Pulse Ox 96 08/04/23 11:05 Oxygen Delivery Method Room Air 08/04/23 11:05 BMI result Body Mass Index 36.4 Tobacco/Smoking Status: Tobacco use Status Tobacco use date assessed 03/31/23 08/04/23 11:03 Patient Tobacco Use Status Never used Tobacco 08/04/23 11:03 e-Cigarette/Vaping Use Never Used 08/04/23 11:03 PHQ-9: PHQ-9 Score PHQ-9: Total score 2 08/04/23 11:12 Depression Screening Interpretation: Negative Thrive Assessment: Date of Thrive Assessment Date Thrive assessed 08/04/23 08/04/23 11:12 Const General: no acute distress HENMT Head: Yes normal to inspection Eyes General: appearance normal, both eyes and all related structures Neck Neck: Yes supple Resp Effort & Inspection: normal respiratory effort Auscultation: clear to auscultation bilaterally Cardio Rhythm: regular rhythm Heart sounds: S1 normal heart sound present and S2 normal heart sound present Assessment and Plan Assessment & Plan (1) Heart murmur: Comment: Echo nl EF, NO VALVULAR ABNORMALITIES 05/2023 Code(s): R01.1 - Cardiac murmur, unspecified (2) Asthma: Comment: PFT's 07/2015 Mild obstructive airway disorder, improves with broncho, mild restrictive pulmonary disease Code(s): J45.909 - Unspecified asthma, uncomplicated Plan: Continue Arnuity and albuterol p.r.n. (3) Hyperlipidemia: Comment: Diet controlled Code(s): E78.5 - Hyperlipidemia, unspecified Plan: Continue low-cholesterol diet (4) Overweight: Code(s): E66.3 - Overweight Plan: Increase physical activity decrease caloric intake and weight loss discussed with the patient, return for physical in March (5) Anxiety: Code(s): F41.9 - Anxiety disorder, unspecified Plan: Continue Zoloft Orders: Orders Hemoglobin A1c 8 Months E55.9 - Vitamin D deficiency, unspecified, E78.5 - Hyperlipidemia, unspecified, R73.9 - Hyperglycemia, unspecified, Z00.00 - Encounter for general adult medical examination without abnormal findings Vitamin D 25-OH Total 8 Months E55.9 - Vitamin D deficiency, unspecified, E78.5 - Hyperlipidemia, unspecified, R73.9 - Hyperglycemia, unspecified, Z00.00 - Encounter for general adult medical examination without abnormal findings Comprehensive Leadore. Panel Fast 8 Months E55.9 - Vitamin D deficiency, unspecified, E78.5 - Hyperlipidemia, unspecified, R73.9 - Hyperglycemia, unspecified, Z00.00 - Encounter for general adult medical examination without abnormal findings Lipid Panel 8 Months E55.9 - Vitamin D deficiency, unspecified, E78.5 - Hyperlipidemia, unspecified, R73.9 - Hyperglycemia, unspecified, Z00.00 - Encounter for general adult medical examination without abnormal findings Complete Blood Count Auto Diff 8 Months E55.9 - Vitamin D deficiency, unspecified, E78.5 - Hyperlipidemia, unspecified, R73.9 - Hyperglycemia, unspecified, Z00.00 - Encounter for general adult medical examination without abnormal findings TSH reflex Free T4 8 Months E55.9 - Vitamin D deficiency, unspecified, E78.5 - Hyperlipidemia, unspecified, R73.9 - Hyperglycemia, unspecified, Z00.00 - Encounter for general adult medical examination without abnormal findings Medications: Refilled Arnuity Ellipta 100 mcg/actuation (fluticasone furoate) 1 inh inhalation DAILY 90 ea 3RF NS Discontinued Flovent HFA 110 mcg/actuation (fluticasone propionate) administer with spacer Discontinued Reason: Doctor's Order 1 puff inhalation BID 12 grams 4RF NS budesonide 90 mcg/actuation (Pulmicort Flexhaler) Discontinued Reason: Doctor's Order 1 inh inhalation BID 1 ea 5RF Coding Level of Care Code Est Pt Level 4 (77748) Diagnoses Heart murmur R01.1 Asthma J45.909 Hyperlipidemia E78.5 Overweight E66.3 Anxiety F41.9
[2023-08-04 11:05] VITALS: BP 124/70; PULSE 89; O2SAT 96; BMI 36.4
== END 2023-08-04 11:39 | disposition home or self-care (01) ==
PROVIDERS: PCP Internal Medicine; Visit Provider Internal Medicine
DX: R01.1 Cardiac murmur, unspecified (principal); J45.909 Unspecified asthma, uncomplicated; E78.5 Hyperlipidemia, unspecified; E66.3 Overweight; F41.9 Anxiety disorder, unspecified
CPT/HCPCS: 99214

== ENCOUNTER 2024-04-25 08:38 | Outpatient (REF) | payer MEDICARE, OTHER, SELFPAY ==
--- OUTSIDE RECORDS SUMMARY | 2024-04-25 08:56 | XMS_ITS | Continuity of Care Document ---
Author Organization [facility] Address [address] [place] [id number] Care Team Providers Care Bus And Sys Integration Senior Manager Name Role Phone Nava Pat MD Primary Care Physician [phone] [facility]counter [facility] [id number] Date(s): 03/09/24 - 04/08/[address] [id number] Attending Physician: Admsanta, Real8 Admitting Physician: [id number] Referring Physician: Admtr, Ar8 Encounter Type: Triage Allergies, Adverse Reactions, Alerts Substance Criticality Severity Reaction Reaction Severity Status penicillins Rash Active Percocet 5/325 GI Upset Activ e Medications Aleve = 220 mg, By Mouth, Every 12 hours, 0 Refills, Maintenance, 01/03/24 10:58:00 AM EDT, Partial fill upon patient request if the prescription is for a schedule II opioid drug. Start Date: 01/03/24 Status: Ordered Repeat number: 1 Judie 24 Hour Allergy = 180 mg, By Mouth, Daily in AM, 0 Refills, Maintenance, 02/09/24 10:02:00 AM EST, Partial fill upon patient request if the prescription is for a schedule II opioid drug. Start Date: 02/09/24 Status: Ordered Repeat number: 1 Arnuity Ellipta 100 mcg inhalation powder 1 puffs = 100 mcg, Inhalation, Daily in AM, # 30 each, 0 Refills, Maintenance, 02/09/24 10:29:00 AMEST, Powder, Partial fill upon patient request if the prescription is for a schedule II opioid drug. Start Date: 02/09/24 Status: Ordered Quantity: 30.0 Unit: each Repeat number: 1 aspirin 81 mg oral capsule 1 capsule = 81 mg, By Mouth, Daily, do not exceed 48 capsules in 24 hours, # 30 capsule, 0 Refills,Maintenance, 02/09/24 10:02:00 AM EST, Capsule, Partial fill upon patient request if the prescription is for a schedule II opioid drug. Start Date: 02/09/24 Status: Ordered Quantity: 30.0 Unit: capsule Repeat number: 1 Flonase = 50 mcg, Daily, PRN Other, for seasonal allergies, 0 Refills, Maintenance, 02/09/24 10:01:00 AM EST, Partial fill upon patient request if the prescription is for a schedule II opioid drug. Start Date: 02/09/24 Status: Ordered Repeat number: 1 Multivitamin By Mouth, Daily, 0 Refills, Maintenance, 01/03/24 10:58:00 AM EDT, Partial fill upon patient request if the prescription is for a schedule II opioid drug. Start Date: 01/03/24 Status: Ordered Repeat number: 1 ProAir HFA 90 mcg/inh inhalation aerosol with adapter 1, puffs, Inhalation, 4 times a day, PRN, Refills 0, Maintenance, 10/21/17 2:01:42 PM EDT Start Date: 10/21/17 Status: Ordered Repeat number: 1 Sertraline = 100 mg, By Mouth, Daily in AM, 0 Refills, Maintenance, 01/03/24 10:58:00 AM EDT, Partial fill upon patient request if the prescription is for a schedule II opioid drug. Start Date: 01/03/24 Status: Ordered Repeat number: 1 turmeric By Mouth, Daily, with vivienne, 0 Refills, Maintenance, 03/30/24 10:52:00 AM EST, Partial fill upon patient request if the prescription is for a schedule II opioid drug. Start Date: 03/30/24 Status: Ordered Repeat number: 1 Problem List Condition Confirmation Course Effective Dates Status Health St atus Informant Anxiety Confirmed Active Asthma Confirmed Active History of pulmonary embolism Confirmed Active History of DVT of lower extremity Confirmed Active HTN (hypertension) Confirmed Active Palpitations Confirmed Active PAD (peripheral artery disease) Confirmed Active Severe obesity (BMI 35.0-39.9) with comorbidity Confirmed Active Social History Social History Type Response Smoking Status Never (less than 100 in lifetime) entered on: 01/03/24 Sex Sex Representation Female (finding) Patient Care team information Care Team Personnel Name: Nava Pat MD Position: [facility] Physician - Primary Care Member Role: PCP Address: [address] [place], [place] [address] Telecom: Name: Renetta Riojas RN Position: [facility] SN RN Member Role: Primary Care Nurse Name: Padmini Childs RN Position: [facility] RN Member Role: Primary Care Nurse Name: Jaye Coffey RN Position: [facility] RN Member Role: Primary Care Nurse Name: Aydin Jimenez RN Position: [facility] RN Member Role: Primary Care Nurse Care Team Related Persons Name: JERARDO ZHENG Insurance Providers Guarantor name: VERONICA ZHENG Health Plan Information #: 1 Payer: MEDICARE PART B OUTPT Member Number: NA Policy Number: NA Group Number: NA Health Plan Information #: 2 Payer: [facility] Member Number: NA Policy Number: NA Group Number: NA
[2024-04-25 10:18] LABS: MANUAL DIFF FLAG NO
[2024-04-25 10:29] LABS: Basophils Percent Auto 0.6 % (0-2); Eosinophils Absolute Auto 0.3 X10*3/uL (0.0-0.4); Eosinophils Percent Auto 3.8 % (0-4); Hematocrit 41.6 % (37.0-47.0); Hemoglobin 13.9 g/dl (12.0-16.0); Imm Gran Abs Auto 0.05 X10*3/uL (0.00-0.03); Imm Gran Pct Auto 0.7 % (0.0-0.4); Lymphocytes Absolute Auto 1.7 X10*3/uL (1.2-4.9); Lymphocytes Percent Auto 23.2 % (20-40); Mean Corpuscular HGB Conc 33.4 g/dl (31.0-35.0); Mean Corpuscular Hemoglobin 29.8 pg (27.0-33.0); Mean Corpuscular Volume 89.1 fL (80.0-98.0); Mean Platelet Volume 8.9 fL (9.4-12.3); Monocytes Absolute Auto 0.5 X10*3/uL (0.1-1.2); Monocytes Percent Auto 7.4 % (2-11); Neutrophils Absolute Auto 4.6 x10*3/uL (2.0-8.3); Neutrophils Percent Auto 64.3 % (45-73); Platelet Count 260 X10*3/uL (160-400); Red Blood Count 4.67 X10*6/uL (4.20-5.50); Red Cell Distribution Width 13.5 % (11.0-16.0); White Blood Count 7.2 X10*3/uL (4.8-10.8)
[2024-04-25 10:51] LABS: Alanine Aminotransferase 31 U/L (0-31); Albumin Level 4.4 g/dL (3.5-5.0); Alkaline Phosphatase 78 U/L (39-117); Anion Gap 10 (12-20); Aspartate Amino Transferase 32 U/L (5-31); Bilirubin Total 0.6 mg/dL (0.0-1.0); Blood Urea Nitrogen 26 mg/dL (9-16); Calcium 9.9 mg/dL (8.4-10.2); Carbon Dioxide 30 mmol/L (22-29); Chloride 105 mmol/L (96-108); Cholesterol 215 mg/dL (<200); Estimated Glomerular Filt Rate > 60; Glucose Fasting 101 mg/dL (60-99); HDL Cholesterol 74 mg/dL (>40); LDL Cholesterol Calculated 119 mg/dL (<100); Potassium 4.3 mmol/L (3.3-5.1); Sodium 141 mmol/L (135-145); Total Protein 8.3 g/dL (6.5-8.0); Triglycerides 111 mg/dL (<150)
[2024-04-25 10:56] LABS: Estimated Average Glucose 100 mg/dL; Hemoglobin A1c % 5.1 % (<6.0); Total Hemoglobin (HGBA1C) 4663.6835 umol/L
[2024-04-25 11:10] LABS: TSH reflex Free T4 1.79 uIU/mL (0.32-4.0); Vitamin D 25-OH Total 43.1 ng/mL (>30)
== END 2024-04-25 08:39 | disposition home or self-care (01) ==
LOC: HO.HMGCLDS 08:38
PROVIDERS: PCP Internal Medicine; Visit Provider Internal Medicine
DX: Z00.00 Encounter for general adult medical examination without abnormal findings (principal); E55.9 Vitamin D deficiency, unspecified; E78.5 Hyperlipidemia, unspecified; R73.9 Hyperglycemia, unspecified
CPT/HCPCS: 36415; 80053; 80061; 82306; 83036; 84443; 85025

== ENCOUNTER 2024-04-27 08:06 | Outpatient (AMB) | payer MEDICARE, OTHER, SELFPAY ==
[2024-04-27 08:10] VITALS: BP 132/80; PULSE 85; RESP 18; TEMP 36.9; O2SAT 96; BMI 36.4
--- NOTE | 2024-04-27 08:10 | MHC.PC.OV ---
Vital Signs 04/27/24 08:10 Height 5 ft 10 in Weight 254 lb BMI 36.4 BP 132/80 Blood Pressure Location Lt brachial Position Sitting Respiration 18 Pulse 85 Pulse Source Pulse Oximeter Temp 98.5 F Temp Source Oral Pulse Oximetry (%) 96 Oxygen Delivery Method Room Air Intake Visit Reasons: PE Intake Note: Pt is here today for PE. Allergies penicillin G Allergy (Unknown, Verified 04/27/24 08:14) rash/change in personality citalopram Adverse Reaction (Unknown, Verified 04/27/24 08:14) nose bleed From PEN-VEE K Allergy (Severe, Uncoded 04/27/24 08:14) RASH, SOB Medication List - Last Reconciled 04/27/24 by Nava Pat MD albuterol sulfate 90 mcg/actuation 1 inh inhalation QID anastrozole 1 mg PO DAILY Arnuity Ellipta 100 mcg/actuation (fluticasone furoate) 1 inh inhalation DAILY NS aspirin 81 mg PO DAILY flu vac 2020 [id number](PF) 60 mcg (15 mcg x 4)/0.5 mL 0.5 mL IM DIRECTED fluticasone propionate 50 mcg/actuation 1 spray intranasal DAILY hydroxyzine HCl 10 mg PO BEDTIME PRN zbzijjkmrugc-isva-kpgjj acid 18-400 mg-mcg (Centrum Women) 1 tab PO DAILY naproxen sodium (Aleve) 220 mg PO BID PRN sertraline 100 mg (2 x 50 mg) PO DAILY Tobacco use date assessed: 04/27/24 Fall risk assessment: No Falls in past year Last assessed Fall Risk: 04/27/24 Dental Screening Dental Screen Date: 04/27/24 Did you have a dental visit in the last 12 months?: Yes Did you have a dental problem in the last 6 months where you did not have access to dental care?: No Was dental information given to patient?: Patient has dentist HPI PE HPI Details Pt presents for PE. 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 She will be starting radiation therapy and has been taking Anastrozole and f/u with [facility] oncology. She is coping well emotionally. Patient complains of chronic right hip pain for the last few months started after trip to [place]. She had x-rays and tried physical therapy. Patient follows up with [facility] Medical History (Updated 04/27/24 @ 09:24 by Nava Pat MD) Hyperglycemia Mammogram normal Normal Pap smear Hyperlipidemia Abnormal colonoscopy Anxiety Asthma Asthmatic bronchitis Palpitation Annual physical exam Surgical History H/O right breast biopsy H/O colonoscopy History of bilateral knee replacement History of foot surgery History of knee surgery Family History Father Dementia Parkinson disease Mother Dementia Mental health disorder Brother No problems noted. Son No problems noted. Son No problems noted. Daughter No problems noted. Social History (Updated 04/27/24 @ 09:20 by Nava Pat MD) Household Members Other:: Housing: House Alcohol intake: current Alcohol intake frequency: a few times a week Patient Tobacco Use Status: Never used Tobacco e-Cigarette/Vaping Use: Never Used Second Hand Smoke Exposure: Yes service: No Current occupational status: retired Cognitive needs: No Hearing needs: No Vision needs: No Questionnaire PHQ-9 Over the last 2 weeks, how often have you been bothered by any of the following problems? 1. Little interest or pleasure in doing things: not at all 2. Feeling down, depressed, or hopeless: not at all 3. Trouble falling or staying asleep, or sleeping too much: not at all 4. Feeling tired or having little energy: not at all 5. Poor appetite or overeating: not at all 6. Feeling bad about yourself - or that you are a failure or have let yourself or your family down: not at all 7. Trouble concentrating on things, such as reading the newspaper or watching television: not at all 8. Moving or speaking so slowly that other people could have noticed. Or the opposite - being so fidgety or restless that you have been moving around a lot more than usual: not at all 9. Thoughts that you would be better off or of hurting yourself in some way: not at all Total score: 0 Depression Screening Interpretation: Negative Depression Screening Done: Yes 04626 - PHQ-9 Billing: Yes Source: Developed by Drs. Stanley Aquino, Fifi Lucero, Brandon Mcrae and colleagues, with an educational luke from [employer]. Thrive Questionnaire Date Thrive assessed: 04/27/24 I am a: Patient What is your living situation today?: I have a steady place to live Within the past 12 months, did the food you bought not last and you didn't have the money to get more?: Never true Within the past 12 months, did you worry whether your food would run out before you got money to buy more?: Never true Do you have trouble paying for medicines?: No Do you have trouble getting transportation to medical appointments?: No Do you have trouble paying your heating and electricity bill?: No Do you have trouble taking care of your child, family member or friend?: No Do you have trouble with day-to-day activities such as bathing, preparing meals, shopping, managing finances, etc.?: No Are you currently unemployed and looking for a job?: No Are you interested in more education?: No Please select the resources that you would like help with: None Currently or been in a relationship where the following occur: No concerns reported THRIVE Score: 0 AUDIT C Alcohol Use Questionnaire (AUDIT-C) 1. How often do you have a drink containing alcohol?: 2-4 times a month 2. How many drinks containing alcohol do you have on a typical day when you are drinking?: 1 or 2 3. How often do you have six or more drinks on one occasion?: Never Total Score: 2 MARCELO-7 AMB Questionnaire MARCELO-7 Date MARCELO - 7 assessed: 04/27/24 Feeling nervous, anxious, or on edge: 1 = Several days Not being able to stop or control worryin = Several days Worrying too much about different things: 1 = Several days Trouble relaxin = Not at all Being so restless that it is hard to sit still: 0 = Not at all Becoming easily annoyed or irritable: 1 = Several days Feeling afraid as if something awful might happen: 1 = Several days Total MARCELO-7 score (0-4 normal; 5-9 mild; 10-14 moderate; 15-21 severe): 5 Source: Developed by Drs. Stanley Aquino, Fifi Lucero, Brandon Mcrae and colleagues, with an educational luke from [employer]. MARCELO-7 Assessment Billing MARCELO-7 Assessment Tool: MARCELO-7 Assessment 62233 Review of Systems Const All systems reviewed & are unremarkable except as noted in HPI and below Eyes Reports no additional complaints ENT Reports no additional complaints Card Reports no additional complaints Resp Reports no additional complaints GI Reports no additional complaints Reports no additional complaints Physical exam (Primary Care) Vital Signs: Last Vital Signs Temp 98.5 F 04/27/24 08:10 Pulse 85 04/27/24 08:10 Resp 18 04/27/24 08:10 BP 132/80 04/27/24 08:10 Pulse Ox 96 04/27/24 08:10 Oxygen Delivery Method Room Air 04/27/24 08:10 BMI result Body Mass Index 36.4 Tobacco/Smoking Status: Tobacco use Status Tobacco use date assessed 04/27/24 04/27/24 08:20 Patient Tobacco Use Status Never used Tobacco 04/27/24 08:20 e-Cigarette/Vaping Use Never Used 04/27/24 08:20 PHQ-9: PHQ-9 Score PHQ-9: Total score 0 04/27/24 08:20 Depression Screening Interpretation: Negative Thrive Assessment: Date of Thrive Assessment Date Thrive assessed 04/27/24 04/27/24 08:20 Currently or been in a relationship where the following occur: No concerns reported Const General: no acute distress HENMT Head: Yes normal to inspection Ears: hearing grossly normal bilaterally Face and sinus: Yes normal facial exam Throat: Yes posterior oropharynx normal Eyes General: appearance normal, both eyes and all related structures Neck Neck: Yes no lymphadenopathy and Yes supple Resp Effort & Inspection: normal respiratory effort Auscultation: clear to auscultation bilaterally Cardio Rhythm: regular rhythm Heart sounds: S1 normal heart sound present and S2 normal heart sound present GI Inspection: Yes normal to inspection Palpation (GI): Soft to palpation Percussion: Yes normal to percussion Auscultation: normal bowel sounds Extrem Other: There is a decreased range of motion in the right hip General: Yes no clubbing, cyanosis or edema Coding Level of Care Code Est Pt Prev Care >65y(92062) Diagnoses Annual physical exam Z00.00 Vitamin D deficiency E55.9 Breast CA C50.919 Asthma J45.909 Additional Codes MARCELO-7 Assessment Billing - MARCELO-7 Assessment Tool: MARCELO-7 Assessment 17241 ([id number]) PHQ-9 - 15387 - PHQ-9 Billing: Yes ([id number]) Assessment & Plan Assessment & Plan (1) Annual physical exam: Code(s): Z00.00 - Encounter for general adult medical examination without abnormal findings Category: Medical Plan: Well-balanced diet regular physical activity discussed with the patient. she is up-to-date with colonoscopy and will have a bone density at [facility] ordered by Oncology (2) Vitamin D deficiency: Code(s): E55.9 - Vitamin D deficiency, unspecified Category: Medical Plan: Continue vitamin-D supplement (3) Breast CA: Comment: right , DCIS, s/p lumpectomy 12/2023, we will start radiation 04/2024, established with [facility] Oncology, on anastrozole Code(s): C50.919 - Malignant neoplasm of unspecified site of unspecified female breast Category: Medical Plan: Follow-up with oncology (4) Asthma: Comment: PFT's 07/2015 Mild obstructive airway disorder, improves with broncho, mild restrictive pulmonary disease Code(s): J45.909 - Unspecified asthma, uncomplicated Category: Medical Plan: Controlled on Arnuity Ellipta Orders: Orders Comprehensive [place]. Panel Fast 1 Year E55.9 - Vitamin D deficiency, unspecified, Z00.00 - Encounter for general adult medical examination without abnormal findings Vitamin D 25-OH Total 1 Year E55.9 - Vitamin D deficiency, unspecified, Z00.00 - Encounter for general adult medical examination without abnormal findings Complete Blood Count Auto Diff 1 Year E55.9 - Vitamin D deficiency, unspecified, Z00.00 - Encounter for general adult medical examination without abnormal findings Lipid Panel 1 Year E55.9 - Vitamin D deficiency, unspecified, Z00.00 - Encounter for general adult medical examination without abnormal findings Medications: Refilled sertraline 100 mg (2 x 50 mg) PO DAILY 180 tabs 3RF Discontinued hydroxyzine HCl Discontinued Reason: Doctor's Order 10 mg PO BEDTIME PRN 30 tabs 0RF insomnia
--- OUTSIDE RECORDS SUMMARY | 2024-04-27 08:10 | XMS_ITS ---
Author Organization [employer] [facility] Address [address] [place] [address] Care Team Providers Care High Pressure Operator Name Role Phone Nava Pat MD Primary Care Provider Saloni Kovacs Unavailable [phone] Allergies Allergen (clinical drug ingredient) Drug/Non Drug Allergy documented on EMR Reaction Allergy Type Onset Date Status PENICILLIN Skin Rash Drug Allergy Active erythromycin ERYTHROMYCIN Skin Rash Drug Allergy A ctive Results Component Value Reference Range Notes [id number] IGP No Culture 30 Plus Reviewed date:09/23/2023 08:21:10 AM Interpretation: Performing Lab:[facility] [place], [address], [address], [place], Phone - [phone], Director - [facility] Notes/Report: Clinical Information:Vaginal/Cervical, LMP: Men o [id number] Dates / Results....09/08/21 NIL, Neg HPV Other..............Post Menopausal No. of containers..01 ThinPrep Vial DIAGNOSIS: NEGATIVE FOR IN TRAEPITHELIAL LESION OR MALIGNANCY. Specimen adequacy: Satisfactory for evaluation. Endocervical and/or squamous metaplastic cells (endocervical component) are present. Clinician provided ICD10: Z0 1.419 Performed by: Augustus Knowles , Statue Maker (ASCP) . . Note: The Pap smear is a screening test designed to aid in the detection of premalignant and malignant conditions of the uterine cervix. It is not a diagnostic procedure and should not be used as the sole means of detecting cervical cancer. Both false-positive and false-negative reports do occur. . Test Methodology: This liquid based ThinPrep(R) pap test was screened with the use of an image guided system. HPV Aptima Negative Negative This nucleic acid amplification test detects fourteen high-risk HPV types (16,18,31,33,35,39,45,51,52,56,58 ,59,66,68) without differentiation. HPV Genotype Reflex Criteria not met, HPV Genotype not performed. PDF Report Reviewed date:09/23/2023 08:20:49 AM Interpretation: Performing Lab:[facility], [address], [address], [place], Phone - [phone], Director - [facility] Notes/Report: Clinical Information:Vaginal/Cervical, LMP: Men o [id number] Dates / Results....09/08/21 NIL, Neg HPV Other..............Post Menopausal No. of containers..01 ThinPrep Vial REASON FOR VISIT LR MEDICARE PE, Annual BI LEAD Physical 60-85+ Medications Medication SIG (Take, Route, Frequency, Duration) Notes Start Date End Date Status Turmeric Active Arnuity Ellipta 100 MCG/ACT Inhalation for 90 Days Activ e Baby Aspirin Active Sertraline HCl 100 MG 1 tablet Orally On ce a day for 90 days Active Multi-Vitamin - 1 tablet Orally Once a day Active Centrum - Orally Active Judie Allergy 180 MG 1 tablet as neede d Orally Once a day Active Flonase 50 MCG/ACT 1 spray in each nost ril Nasally Once a day Active Aleve 220 MG 1 tablet as needed O rally 24 Active Social History Tobacco Use: Social History Observation Description Date Details (start date - stop date) Never Smoker NA - NA Tobacco Use/Smoking Question Answer Notes Are you a nonsmoker Alcohol Screen (Audit-C) Question Answer Notes Did you have a drink contain ing alcohol in the past year? Yes How often did you have a dri nk containing alcohol in the past year? Monthly or less (1 point) How many drinks did you have on a typical day when you were drinking in the past year? 1 or 2 drinks (0 point) Points 1 Interpretation Negative Sexual History Question Answer Notes Had sex in the past 12 months (vaginal, oral, or anal)? Yes with Men only Prevention strategies discussed: Other Vital Signs Temperature 98.6 degrees Fahrenheit 09/20/19 24 Blood pressure systolic 128 mm Hg 09/20/19 24 Blood pressure diastolic 80 mm Hg 024 Height 69.5 in 09/20/2023 Weight 252 lbs 09/20/2023 BMI 36.68 kg/m2 09/20/2023 Encounters Encounter Location Date Provider Diagnosis Total [facility] [address] [place] [address] 09/20/2023 Saloni Loving Encounter for gynecological examination (general) (routine) without abnormal findings Z01.419 ; Encounter for screening mammogram for malignant neoplasm of breast Z12.31 and Pain in right hip M25.551 Assessments Encounter Date Diagnosis (ICD Code) Assessment Notes Treatment Notes Treatment Clinical Notes Section Notes 09/20/2023 Encounter for gynecological examination (general) (routine) without abnormal findings (ICD-10 - Z01.419) PAP TEST WITH HPV TYPING WAS OBTAINED. 09/20/2023 Encounter for screening mammogram for malignant neoplasm of breast (ICD-10 - Z12.31) REGULAR MAMMOGRAMS AND SBE'S WERE RECOMMENDED. 09/20/2023 Pain in right hip (ICD-10 - M25.551) DISCUSSED COMMON CAUSES OF JOINT PAINS. RECOMMENDED SHE SEE HER PCP FOR FURTHER EVALUATION AND MX. HER PAINS MAY NOT BE JUST DUE TO MUSCLE SPASMS. Plan Of Treatment Treatment Notes Assessment Notes Encounter for gynecological examination (general) (routine) without abnormal findings PAP TEST WITH HPV TYPING WAS OBTAINED. Encounter for screening mamm ogram for malignant neoplasm of breast REGULAR MAMMOGRAMS AND SBE'S WERE RECOMMENDED. Pain in right hip DISCUSSED COMMON CAUSES OF JOINT PAINS. RECOMMENDED SHE SEE HER PCP FOR FURTHER EVALUATION AND MX. HER PAINS MAY NOT BE JUST DUE TO MUSCLE SPASMS. Pending Test Test Name Order Date MAMMOGRAM, SCREENING 09/20/2023 MM Digital Mammo Screening 09/20/2023 Next Appt Details Follow Up: 1 Year, Reason: Provider Name:Saloni russo, 09/21/2024 10:40:00 AM, [address], [address], [place], [address], Progress Notes * VERONICA ZHENGDOShannon:[birth year] (68 yo F)Acc No.[id number]:09/20/2023 PROGRESS NOTES Patient:?VERONICA ZHENG Appointment Provider:?Saloni russo M.D. :1955???Age:68 Y???Sex:Female D ate:09/20/2023 Address:[address] [place] [address] , , [id number] Pcp:Nava Pat MD Subjective: * Chief Complaints: * ???LR MEDICARE PEAnnual BI LEAD Physical 60-85+ * HPI: ???New/Follow-up Patient Consult:? PAT ENTERED MENOPAUSE AT AGE 52.? SHE IS AND DENIES DYSPAREUNIA. SHE AND HER TRAVELLED TO [employer] AND WENT ON A 2 WEEK TOUR RECENTLY.? UNFORTUNATELY, THE BUS HAD LOW SEATS WITH LITTLE LEG ROOM AND WHEN SHE GOT HOME, SHE HAS HAD SEVERE RIGHT HIP PAINS WHICH SHE THINKS IS MUSCLE SPASMS FROM AWKWARD SEATING POSITION FOR 2 WEEKS.? SHE SAW HER CHIROPRACTOR BUT THE TREATMENTS ONLY GAVE HER TEMPORARY RELIEF.? SHE WILL CALL HER PCP FOR MUSCLE RELAXANT. S/P LEFT KNEE REPLACEMENT IN 2017 AND RIGHT KNEE REPLACEMENT IN 2018. HER LAST MAMMOGRAM DONE IN NOV 2022 SHOWED BREASTS ARE NOT DENSE AND WAS NORMAL. HER LAST PAP TEST IN 2021 WAS NEGATIVE AND HPV NEGATIVE. HER LAST BMD IN 2021 WAS NORMAL. SHE HAD A COLONOSCOPY DONE IN 2019. MODERNA X 3. ???Annual:? Patient presents for annual exam, ages 60-85, postmenopausal. 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 * Medical History:? 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 Control:?bilateral tubal ligation.?Menopause: ?Began at age: ?52 ???Colonoscopy?yes 2009.?Bone Density:?11/26/21, 05/05/16, 2008.? * OB History:?Total pregnancies?3.?Total living children?3.?NVD?3.? * Surgical History:?[place] Vikash th Lt foot Surgery Lt knee surgery x2 Colonoscopy Bilateral Tubal Ligation Screw Removal from Loose Plate in Foot Rt Knee Replacement 08/03/2018Lt Knee Hardware removal 10/2018Lt Knee Replacement 12/2017 * Hospitalization/Major Diagno stic Procedure:?3 Vaginal Deliveries See Surgical Hx * Family History:?Mother: aliv e, breast cancer, dementia.?Father: , Parkinsons, dementia.? Maternal side - Arthritis. * Social History:?Tobacco Use:?Tobacco Use/Smoking?Are you a?nonsmoker ???Sexual History:?Sexual History?Had sex in the past 12 months (vaginal, oral, or anal)??Yes ?with?Men only ?Prevention strategies discussed:?Other ?Details of Sexual History?Are you sexually active??Yes ???Drugs/Alcohol:?Drugs?Have you used drugs other than those for medical reasons in the past 12 months??No ?Alcohol Screen (Audit-C)?Did you have a drink containing alcohol in the past year??Yes ?How often did you have a drink containing alcohol in the past year??Monthly or less (1 point) ?How many drinks did you have on a typical day when you were drinking in the past year??1 or 2 drinks (0 point) ?Points?1 ?Interpretation?Negative ???Miscellaneous:?Caffeine: no. ?Children: yes. ?Exercise: yes. ?Home smoke detector use: yes. ?Living with: spouse. ?Marital status: . ?Natural support system: yes. ?Occupation: Retired. ?Sexually active: yes, monogamous relationship. ?Travel outside of the [place]: no. * Medications:?TakingTurmeric Multi-Vitamin - Tablet 1 tablet Orally Once a day Sertraline HCl 100 MG Tablet 1 tablet Orally Once a day Baby Aspirin Aleve 220 MG Tablet 1 tablet as needed Orally 24 Flonase 50 MCG/ACT Suspension 1 spray in each nostril Nasally Once a day Judie Allergy 180 MG Tablet 1 tablet as needed Orally Once a day Centrum - Tablet Chewable Orally Arnuity Ellipta 100 MCG/ACT Aerosol Powder Breath Activated Inhalation Taking Turmeric Taking Multi-Vitamin - Tablet 1 tablet Orally Once a day Taking Sertraline HCl 100 MG Tablet 1 tablet Orally Once a day Taking Baby Aspirin Taking Aleve 220 MG Tablet 1 tablet as needed Orally 24 Taking Flonase 50 MCG/ACT Suspension 1 spray in each nostril Nasally Once a day Taking Judie Allergy 180 MG Tablet 1 tablet as needed Orally Once a day Taking Centrum - Tablet Chewable Orally Taking Arnuity Ellipta 100 MCG/ACT Aerosol Powder Breath Activated Inhalation DiscontinuedAlbuterol Sulfate HFA 108 (90 Base) MCG/ACT Aerosol Solution INHALE 1 INHALATION 4 TIMES A DAY Inhalation Medication List reviewed and reconciled with the patientDiscontinued Albuterol Sulfate HFA 108 (90 Base) MCG/ACT Aerosol Solution INHALE 1 INHALATION 4 TIMES A DAY Inhalation Medication List reviewed and reconciled with the patient * Allergies:?PENICILLIN: Skin Rash - AllergyERYTHROMYCIN: Skin Rash - Allergyno[Allergies Verified] Objective: * Vitals:?Ht: 69.5 in, Wt: 252 lbs, BMI:36.68Index, BP: 128/80 mm Hg, Temp: 98.6 F. * Examination: ???General Exam: ?CONSTITUTIONAL:?NECK/THYROID:?RESPIRATORY:?Auscultation: clear to auscultation bilaterally, Respiratory Effort: normal.?CARDIOVASCULAR:?Auscultation: regular rate and rhythm.?BREAST, Right:?BREAST, Left:?GASTROINTESTINAL:?MUSCULOSKELETAL:?SKIN:?NEURO/PSYCH:?Genitourinary: ?EXTERNAL GENITALIA:?VAGINA:?BLADDER:?URETHRA:?CERVIX:?UTERUS:?ADNEXA:?ANUS AND PERINEUM:? Assessment: * Assessment: 1.?Encounter for gynecologic al examination (general) (routine) without abnormal findings - Z01.419?2.?Encounter for screening mammogram for malignant neoplasm of breast - Z12.31?3.?Pain in right hip - M25.551? Plan: * Treatment: 2.?Encounter for screening m ammogram for malignant neoplasm of breast?Imaging: MM Digital Mammo Screening Notes: REGULAR MAMMOGRAMS AND SBE'S WERE RECOMMENDED.?? 3.?Pain in right hip? Notes: DISCUSSED COMMON CAUSES OF JOINT PAINS. RECOMMENDED SHE SEE HER PCP FOR FURTHER EVALUATION AND MX. HER PAINS MAY NOT BE JUST DUE TO MUSCLE SPASMS.?? * Imaging:? * ?Imaging: MAMMOGRAM, SCR EENING * Procedure Codes:? * Preventive Medicine:? ??YOUR PREVENTIVE WELLNESS PLAN:?Osteoporosis prevention?Calcium, D, strength training.?Breast Cancer Screening (Mammogram):?annually.?Cervical Cancer Screening (Pap Smear):?q 3 years with HPV screen.?Colorectal Cancer Screening:?q 10 years.? * Follow Up:?1 Year * Images: Billing Information: * Visit Code:? 95794 Preventive Care Est Pt. Age 65 and over. * Procedure Codes:? * Sign off status: Completed true * Appointment Provider:?Saloni Loving M.D. Date:?09/20/2023 Generated for Oz jimenez/Viji/Kendallitting on:?04/27/2024 08:10 AM EST History and Physical Notes * HPI (History of Present Illness) Category Sub-Category Detail Notes Category Not es New/Follow-up Patient Consult PAT ENTERED MENOPAUSE AT AGE 52. SHE IS AND DENIES DYSPAREUNIA. SHE AND HER TRAVELLED TO [employer] AND WENT ON A 2 WEEK TOUR RECENTLY. UNFORTUNATELY, THE BUS HAD LOW SEATS WITH LITTLE LEG ROOM AND WHEN SHE GOT HOME, SHE HAS HAD SEVERE RIGHT HIP PAINS WHICH SHE THINKS IS MUSCLE SPASMS FROM AWKWARD SEATING POSITION FOR 2 WEEKS. SHE SAW HER CHIROPRACTOR BUT THE TREATMENTS ONLY GAVE HER TEMPORARY RELIEF. SHE WILL CALL HER PCP FOR MUSCLE RELAXANT. S/P LEFT KNEE REPLACEMENT IN 2017 AND RIGHT KNEE REPLACEMENT IN 2018. HER LAST MAMMOGRAM DONE IN NOV 2022 SHOWED BREASTS ARE NOT DENSE AND WAS NORMAL. HER LAST PAP TEST IN 2021 WAS NEGATIVE AND HPV NEGATIVE. HER LAST BMD IN 2021 WAS NORMAL. SHE HAD A COLONOSCOPY DONE IN 2019. MODERNA X 3. 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 Examination Category Sub-Category Detail Notes Category Not es General Exam CONSTITUTIONAL: General Appearan ce:: alert, in no acute distress, normal, well nourished NECK/THYROID: Thyroid:: normal size and shape Inspection/Palpation:: normal RESPIRATORY: Auscultation: clear to auscultation bilaterally, Respiratory Effort: normal CARDIOVASCULAR: Auscultation: regula r rate and rhythm GASTROINTESTINAL: Hernias:: no hernias present, no inguinal adenopathy Liver and Spleen:: normal Abdomen:: no masses, nontender, nondiste nded MUSCULOSKELETAL: Inspection/Palpation:: no clubb ing, cyanosis, or edema SKIN: Skin:: normal NEURO/PSYCH: Mood/Affect:: normal Orientation:: time , place, person BREAST, Right: Inspection/Palpation :: no discharge, no masses present, no nipple retraction, no skin changes, no skin dimpling, no tenderness, no lymphadenopathy, no axillary mass, no axillary tenderness BREAST, Left: Inspection/Palpation :: no discharge, no masses present, no nipple retraction, no skin changes, no skin dimpling, no tenderness, no lymphadenopathy, no axillary mass, no axillary tenderness Genitourinary EXTERNAL GENITALIA: External Genitalia:: nor mal, no lesions VAGINA: Vagina:: normal appearance, no a bnormal discharge, no lesions BLADDER: Bladder:: no mass, nontender URETHRA: Urethra:: no erythema or lesions present CERVIX: Cervix:: no lesions, nontender UTERUS: Uterus:: nontender, normal conto ur, normal mobility, normal size ADNEXA: Adnexa:: no masses, no tendernes s ANUS AND PERINEUM: Anus/Perineum:: visually norm al
--- OUTSIDE RECORDS SUMMARY | 2024-04-27 08:10 | XMS_ITS ---
Author Organization [employer] [facility] Address [address] [address] Care Team Providers Care Farmworker Name Role Phone Nava Pat MD Primary Care Provider Saloni Kovacs Unavailable [phone] Allergies Allergen (clinical drug ingredient) Drug/Non Drug Allergy documented on EMR Reaction Allergy Type Onset Date Status PENICILLIN Skin Rash Drug Allergy Active erythromycin ERYTHROMYCIN Skin Rash Drug Allergy A ctive REASON FOR VISIT BREAST BX RESULTS Medications Medication SIG (Take, Route, Frequency, Duration) Notes Start Date End Date Status Flonase 50 MCG/ACT 1 spray in each nost ril Nasally Once a day Active Aleve 220 MG 1 tablet as needed O rally 24 Active Arnuity Ellipta 100 MCG/ACT Inhalation for 90 Days Activ e Centrum - Orally Active Judie Allergy 180 MG 1 tablet as neede d Orally Once a day Active Baby Aspirin Active Sertraline HCl 100 MG 1 tablet Orally On ce a day for 90 days Active Multi-Vitamin - 1 tablet Orally Once a day Active Turmeric Active Social History Tobacco Use: Social History Observation Description Date Details (start date - stop date) Never Smoker NA - NA Sexual History Question Answer Notes Had sex in the past 12 months (vaginal, oral, or anal)? Yes with Men only Prevention strategies discussed: Other AUDIT-C (Standard) Question Answer Notes Did you have a drink contain ing alcohol in the past year? Yes How often did you have six o r more drinks on one occasion in the past year? Never (0 point) How many drinks did you have on a typical day when you were drinking in the past year? 1 or 2 drinks (0 point) How often did you have a dri nk containing alcohol in the past year? 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 Vital Signs Temperature 97.5 degrees Fahrenheit 12/28/19 24 Blood pressure systolic 124 mm Hg 12/28/19 24 Blood pressure diastolic 86 mm Hg 024 Height 69.5 in 12/28/2023 Weight 252 lbs 12/28/2023 BMI 36.68 kg/m2 12/28/2023 Encounters Encounter Location Date Provider Diagnosis [facility] [address] [place] [address] 12/28/2023 Saloni Dooleyva Intraductal carcinoma in situ of right breast D05.11 Assessments Encounter Date Diagnosis (ICD Code) Assessment Notes Treatment Notes Treatment Clinical Notes Section Notes 12/28/2023 Intraductal carcinoma in situ of right breast (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 DISCUSSED IMPLICATIONS OF THE REPORT AND NEED FOR SURGICAL CONSULTATION AND POSSIBLE TX OPTIONS INCLUDING LUMPECTOMY AND ANTI ESTROGENS. RAHAT HAS AN APPT TO SEE DR MOLINA THIS DEC 2023. SHE IS ON SERTRALINE AND REFUSED ANXIETY PREVENTING MEDS LIKE ATIVAN. SHE TOOK THE NEWS WELL. Plan Of Treatment Treatment Notes Assessment Notes Intraductal carcinoma in sit u of right breast DISCUSSED PATHOLOGY REPORT AND DIAGNOSIS AT LENGTH. DISCUSSED IMPLICATIONS OF THE REPORT AND NEED FOR SURGICAL CONSULTATION AND POSSIBLE TX OPTIONS INCLUDING LUMPECTOMY AND ANTI ESTROGENS. RAHAT HAS AN APPT TO SEE DR MOLINA THIS DEC 2023. SHE IS ON SERTRALINE AND REFUSED ANXIETY PREVENTING MEDS LIKE ATIVAN. SHE TOOK THE NEWS WELL. Next Appt Details Follow Up: prn, Reason: Provider Name:Saloni russo, 09/21/2024 10:40:00 AM, [address], [place], [address], Progress Notes * NORA ZHENG:[birth year] (68 yo F)Acc No.[id number]:12/28/2023 PROGRESS NOTES Patient:?VERONICA ZHENG Number:[id number] Appointment Provider:?Saloni russo M.D. :1955???Age:68 Y???Sex:Female D ate:12/28/2023 Address:[address] [place] [address] , , [place] [id number] Pcp:Nava Pat MD Subjective: * Chief Complaints: * ???BREAST BX RESULTS * HPI: ???New/Follow-up Patient Consult:? PAT UNDERWENT RIGHT BREAST BIOPSY FOR ABNORMAL MAMMOGRAM FINDINGS AND THIS SHOWED DCIS, INTERMEDIATE GRADE, ESTROGEN AND PROGESTERONE RECEPTOR POSITIVE.? SHE IS HERE TO DISCUSS THE RESULTS. * ROS:?general:?no?chest pain.?no?palpitations.?no?headache.?no?cough.?no?shortness of breath.?no?fever.?no?unexplained weight loss.?no?nausea/vomiting.?no?change in bowel movements.?no blood in stool.?no?genitourinary complaints.?no?skin complaints.? * Medical History:? 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 Control:?bilateral tubal ligation.?Menopause: ?Began at age: ?52 ???Colonoscopy?yes 2009.?Bone Density:?11/26/21, 05/05/16, 2008.? * OB History:?Total pregnancies?3.?Total living children?3.?NVD?3.? * Surgical History:?[place] Vikash th Lt foot Surgery Lt knee surgery x2 Colonoscopy Bilateral Tubal Ligation Screw Removal from Loose Plate in Foot Rt Knee Replacement 08/03/2018Lt Knee Hardware removal 10/2018Lt Knee Replacement 12/2017Right Breast Bx 12/21/23 * Hospitalization/Major Diagno stic Procedure:?3 Vaginal Deliveries See Surgical Hx * Family History:?Mother: aliwendy e, breast cancer, dementia.?Father: , Parkinsons, dementia.? Maternal side - Arthritis. * Social History:?Tobacco Use:?Tobacco Control (Standard)?Tobacco use:?Nonsmoker ???Sexual History:?Sexual History?Had sex in the past 12 months (vaginal, oral, or anal)??Yes ?with?Men only ?Prevention strategies discussed:?Other ?Details of Sexual History?Are you sexually active??Yes ???Drugs/Alcohol:?Drugs?Have you used drugs other than those for medical reasons in the past 12 months??No ???Miscellaneous:?Caffeine: no. ?Children: yes. ?Exercise: yes. ?Home smoke detector use: yes. ?Living with: spouse. ?Marital status: . ?Natural support system: yes. ?Occupation: Retired. ?Sexually active: yes, monogamous relationship. ?Travel outside of the [place]: no. ???Drug/Alcohol:?AUDIT-C (Standard)?Did you have a drink containing alcohol in the past year??Yes ?How often did you have six or more drinks on one occasion in the past year??Never (0 point) ?How many drinks did you have on a typical day when you were drinking in the past year??1 or 2 drinks (0 point) ?How often did you have a drink containing alcohol in the past year??Monthly or less (1 point) ?Points?1 ?Interpretation?Negative * Medications:?TakingTurmeric Multi-Vitamin - Tablet 1 tablet [...] 100 MCG/ACT Aerosol Powder Breath Activated Inhalation Medication List reviewed and reconciled with the patientTaking Turmeric Taking Multi-Vitamin - Tablet 1 tablet [...] 100 MCG/ACT Aerosol Powder Breath Activated Inhalation Medication List reviewed and reconciled with the patient * Allergies:?PENICILLIN: Skin Rash - AllergyERYTHROMYCIN: Skin Rash - Allergyno[Allergies Verified] Objective: * Vitals:?Ht: 69.5 in, Wt: 252 lbs, BMI:36.68Index, BP: 124/86 mm Hg, Temp: 97.5 F. 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 Plan: * Treatment: * Procedure Codes:? * Follow Up:?prn * Images: Billing Information: * Visit Code:? * Procedure Codes:? * Sign off status: Completed true * Appointment Provider:?Saloni Loving M.D. Date:?12/28/2023 Generated for Oz jimenez/Viji/Kendallitting on:?04/27/2024 08:10 AM EST History and Physical Notes * HPI (History of Present Illness) Category Sub-Category Detail Notes Category Not es New/Follow-up Patient Consult PAT UNDERWENT RIGHT BREAST BIOPSY FOR ABNORMAL MAMMOGRAM FINDINGS AND THIS SHOWED DCIS, INTERMEDIATE GRADE, ESTROGEN AND PROGESTERONE RECEPTOR POSITIVE. SHE IS HERE TO DISCUSS THE RESULTS.
--- OUTSIDE RECORDS SUMMARY | 2024-04-27 08:10 | XMS_ITS | Continuity of Care Document ---
Author Organization [facility] Address [address], [address] [place] [address] Phone Care Team Providers Care Tree Puller Name Role Phone Unavailable Unavailable Unavailable Results Test Name Date and Time Measure Units Reference Range Abnormal Flag Status Comments Panel Description: Culture, Genital Final FINAL REPORT 13:18:00 NORMAL VAGINAL BALDEMAR NR Final Advance Directives Directive Yes / No Effective Date File Name No Information Encounters Encounter Description Practice Location Reason(s) For Visit Diagnoses Date Provider [facility], [address], [address], [place], [id number], [place] tel:[phone] CLOSED 53 [facility] No Information 2010 No Information Family History Family Member Type Diagnosis Age At Onset No Information Payers Payer name Insurance type Covered constitution party ID Authoriza tion(s) No Information Social History Type Description Quantity Date Captured Comments Sex Female Smoking Status No Information Chief Complaint And Reason For Visit No Information History Of Present Illness Encounter Date Complaint History Of Prese nt Illness No Information Instructions Date Instruction Additional Infor mation No Information Assessments Type Assessment Date No Information
--- OUTSIDE RECORDS SUMMARY | 2024-04-27 08:11 | XMS_ITS ---
Author Organization [facility] Address [address] [facility] [address] [place] [address] Care Team Providers Care Md Pediatric Allergist Name Role Phone Nava Pat MD Primary Care Provider Saloni Kovacs [phone] REASON FOR VISIT BREAST BX SCHEDULED Encounters Encounter Location Date Provider Diagnosis [facility] [address] [place] [address] [address] [place] [address] 12/15/2023 Saloni Loving Plan Of Treatment Next Appt Details Provider Name:Saloni russo, 09/21/2024 10:40:00 AM, [address] [facility], [address], [place], [address], Progress Notes * JOSH ZHENGNATALIIADOB:[birth year] (68 yo F)Acc No.[id number]:12/15/2023 Patient:?VERONICA ZHENG :1955???Age:68 Y???Sex:Female Address:[address] [place] [address] , , [place], [address] * true * Date:? Generated for Laureni barbara/Viji/eTransmitting on:?04/27/2024 08:10 AM EST
== END 2024-04-27 08:45 | disposition home or self-care (01) ==
PROVIDERS: PCP Internal Medicine; Visit Provider Internal Medicine
DX: Z00.00 Encounter for general adult medical examination without abnormal findings (principal); E55.9 Vitamin D deficiency, unspecified; C50.919 Malignant neoplasm of unspecified site of unspecified female breast; J45.909 Unspecified asthma, uncomplicated

== ENCOUNTER → 2024-04-27 08:06 | Outpatient (BNVA) | payer MEDICARE, OTHER, SELFPAY | PROVIDERS: PCP Internal Medicine; Visit Provider Internal Medicine | DX: Z00.00 Encounter for general adult medical examination without abnormal findings (principal); E55.9 Vitamin D deficiency, unspecified; J45.909 Unspecified asthma, uncomplicated; C50.919 Malignant neoplasm of unspecified site of unspecified female breast | CPT/HCPCS: 96127; 99397 ==

== ENCOUNTER 2024-07-13 10:46 | Outpatient (REF) | payer MEDICARE, OTHER, SELFPAY ==
--- OUTSIDE RECORDS SUMMARY | 2024-07-13 13:31 | XMS_ITS | Continuity of Care Document ---
Author Organization [facility] Address [address], [address] [place] [address] Phone Care Team Providers Care Senior Risk Manager Name Role Phone Unavailable Unavailable Unavailable Results Test Name Date and Time Measure Units Reference Range Abnormal Flag Status Comments Panel Description: Culture, Genital Final FINAL REPORT 13:18:00 NORMAL VAGINAL BALDEMAR NR Final Advance Directives Directive Yes / No Effective Date File Name No Information Encounters Encounter Description Practice Location Reason(s) For Visit Diagnoses Date Provider [facility], [address] [place], [address], [place], [id number], [place] tel:[phone] CLOSED [facility] No Information 2010 No Information Family History Family Member Type Diagnosis Age At Onset No Information Payers Payer name Insurance type Covered republican ID Authoriza tion(s) No Information Social History Type Description Quantity Date Captured Comments Sex Female Smoking Status No Information Chief Complaint And Reason For Visit No Information History Of Present Illness Encounter Date Complaint History Of Prese nt Illness No Information Instructions Date Instruction Additional Infor mation No Information Assessments Type Assessment Date No Information
== END 2024-07-13 10:47 | disposition home or self-care (01) ==
LOC: HO.HMGCLDS 10:46
PROVIDERS: PCP Internal Medicine; Visit Provider Internal Medicine
DX: R32 Unspecified urinary incontinence (principal); R39.15 Urgency of urination; J45.909 Unspecified asthma, uncomplicated; Z96.641 Presence of right artificial hip joint
CPT/HCPCS: 99212

== ENCOUNTER 2024-07-13 10:46 | Outpatient (AMB) | payer MEDICARE, OTHER, SELFPAY ==
[2024-07-13 10:52] VITALS: BP 110/70; PULSE 99; RESP 20; TEMP 36.4; O2SAT 98; BMI 37.6
--- NOTE | 2024-07-13 10:52 | A.OFFPC_ITS ---
Vital Signs 07/13/24 10:52 Height 5 ft 10 in Weight 262 lb BMI 37.6 BP 110/70 Blood Pressure Location Rt brachial Position Sitting Respiration 20 Pulse 99 Pulse Source Pulse Oximeter Temp 97.6 F Temp Source Oral Pulse Oximetry (%) 98 Oxygen Delivery Method Room Air Intake Visit Reasons: Hospital follow up Intake Note: Pt is here today for Hospital follow up visit. Allergies penicillin G Allergy (Unknown, Verified 07/13/24 10:55) rash/change in personality acetaminophen [From Percocet] Allergy (Verified 07/13/24 10:55) itchy, oxycodone [From Percocet] Allergy (Verified 07/13/24 10:55) itchy, citalopram Adverse Reaction (Unknown, Verified 07/13/24 10:55) nose bleed From PEN-VEE K Allergy (Severe, Uncoded 07/13/24 10:55) RASH, SOB Tobacco use date assessed: 07/13/24 Dental Screening Dental Screen Date: 04/27/24 HPI Hospital follow up HPI Details Pt presents for f/u R hip arthroplasty 1 1/2 week ago she is doing well getting home physical therapy ambulating with the walker. Patient complains of worsening urinary urgency and incontinence worse at night since the surgery. She denies dysuria abdominal pain fever chills. [facility] Medical History Hyperglycemia Mammogram normal Normal Pap smear Hyperlipidemia Abnormal colonoscopy Anxiety Asthma Asthmatic bronchitis Palpitation Annual physical exam Surgical History H/O right breast biopsy H/O colonoscopy History of bilateral knee replacement History of foot surgery History of knee surgery Family History Father Dementia Parkinson disease Mother Dementia Mental health disorder Brother No problems noted. Son No problems noted. Son No problems noted. Daughter No problems noted. Social History Household Members Other:: Housing: House Alcohol intake: current Alcohol intake frequency: a few times a week Patient Tobacco Use Status: Never used Tobacco e-Cigarette/Vaping Use: Never Used Second Hand Smoke Exposure: Yes service: No Current occupational status: retired Cognitive needs: No Hearing needs: No Vision needs: No Questionnaire Thrive Questionnaire Date Thrive assessed: 04/27/24 I am a: Patient What is your living situation today?: I have a steady place to live Within the past 12 months, did the food you bought not last and you didn't have the money to get more?: Never true Within the past 12 months, did you worry whether your food would run out before you got money to buy more?: Never true Do you have trouble paying for medicines?: No Do you have trouble getting transportation to medical appointments?: No Do you have trouble paying your heating and electricity bill?: No Do you have trouble taking care of your child, family member or friend?: No Do you have trouble with day-to-day activities such as bathing, preparing meals, shopping, managing finances, etc.?: No Are you currently unemployed and looking for a job?: No Are you interested in more education?: No Please select the resources that you would like help with: None Currently or been in a relationship where the following occur: No concerns reported THRIVE Score: 0 MARCELO-7 AMB Questionnaire MARCELO-7 Date MARCELO - 7 assessed: 04/27/24 Source: Developed by Drs. Stanley Aquino, Fifi Lucero, Brandon Mcrae and colleagues, with an educational luke from [employer]. Review of Systems Const All systems reviewed & are unremarkable except as noted in HPI and below ENT Reports no additional complaints Card Reports no additional complaints Resp Reports no additional complaints GI Reports no additional complaints Reports no additional complaints Physical exam (Primary Care) Vital Signs: Last Vital Signs Temp 97.6 F 07/13/24 10:52 Pulse 99 07/13/24 10:52 Resp 20 07/13/24 10:52 BP 110/70 07/13/24 10:52 Pulse Ox 98 07/13/24 10:52 Oxygen Delivery Method Room Air 07/13/24 10:52 BMI result Body Mass Index 37.6 Tobacco/Smoking Status: Tobacco use Status Tobacco use date assessed 07/13/24 07/13/24 11:02 Patient Tobacco Use Status Never used Tobacco 07/13/24 10:54 e-Cigarette/Vaping Use Never Used 07/13/24 10:54 Thrive Assessment: Date of Thrive Assessment Date Thrive assessed 04/27/24 07/13/24 10:54 Currently or been in a relationship where the following occur: No concerns reported Const General: no acute distress HENMT Head: Yes normal to inspection Eyes General: appearance normal, both eyes and all related structures Neck Neck: Yes supple Resp Effort & Inspection: normal respiratory effort Auscultation: clear to auscultation bilaterally Cardio Rhythm: regular rhythm Heart sounds: S1 normal heart sound present and S2 normal heart sound present GI Inspection: Yes normal to inspection Palpation (GI): Soft to palpation Percussion: Yes normal to percussion Auscultation: normal bowel sounds Coding Level of Care Code Est Pt Level 4 (17923) Diagnoses Urinary incontinence R32 Asthma J45.909 S/P total right hip arthroplasty Z96.641 Assessment & Plan Assessment & Plan (1) Urinary incontinence: Code(s): R32 - Unspecified urinary incontinence Category: Medical Plan: Check UA and culture trial of Myrbetriq (2) Asthma: Comment: PFT's 07/2015 Mild obstructive airway disorder, improves with broncho, mild restrictive pulmonary disease Code(s): J45.909 - Unspecified asthma, uncomplicated Category: Medical Plan: Continue Arnuity (3) S/P total right hip arthroplasty: Comment: 06/2024 Code(s): Z96.641 - Presence of right artificial hip joint Category: Surgical Plan: Follow-up with the surgeon Orders: Orders UA w Microscopic Today R32 - Unspecified urinary incontinence Urine Culture Today R32 - Unspecified urinary incontinence Medications: New Myrbetriq ER (mirabegron) 1-2 tab orally daily; 60 tabs 0RF NS Myrbetriq ER (mirabegron) 1-2 tab orally daily; 60 tabs 0RF NS
--- OUTSIDE RECORDS SUMMARY | 2024-07-13 12:22 | XMS_ITS ---
Author Organization [facility] Address [address] [facility] [address] [place] [address] Care Team Providers Care Seismograph Operator Name Role Phone Nava Pat MD Primary Care Provider Saloni Kovacs [phone] REASON FOR VISIT LT BREAST MAMMO Encounters Encounter Location Date Provider Diagnosis [facility] [address] [place] [address] [address] [place] [address] 06/22/2024 Saloni Loving Plan Of Treatment Next Appt Details Provider Name:Saloni russo, 09/21/2024 10:40:00 AM, [address] [facility], [address], [place], [address], Progress Notes * VERONICA ZHENGDOB:[birth year] (68 yo F)Acc No.[id number]:06/22/2024 Patient:?VERONICA ZHENG :1955???Age:68 Y???Sex:Female Address:[address] [place] [address] , , [place], [address] * true * Date:? Generated for Printi barbara/Viji/eTransmitting on:?07/13/2024 12:22 PM EDT
--- OUTSIDE RECORDS SUMMARY | 2024-07-13 12:22 | XMS_ITS | Continuity of Care Document ---
Author Organization [facility] Address [address], [address] [place] [address] Phone Care Team Providers Care Contact Finger Assembler Name Role Phone Unavailable Unavailable Unavailable Results Test Name Date and Time Measure Units Reference Range Abnormal Flag Status Comments Panel Description: Culture, Genital Final FINAL REPORT 13:18:00 NORMAL VAGINAL BALDEMAR NR Final Advance Directives Directive Yes / No Effective Date File Name No Information Encounters Encounter Description Practice Location Reason(s) For Visit Diagnoses Date Provider [facility], [address] [place], [address], [place], [id number], [place] tel:[phone] CLOSED 53 [facility] No Information 2010 No Information Family History Family Member Type Diagnosis Age At Onset No Information Payers Payer name Insurance type Covered alliance party ID Authoriza tion(s) No Information Social History Type Description Quantity Date Captured Comments Sex Female Smoking Status No Information Chief Complaint And Reason For Visit No Information History Of Present Illness Encounter Date Complaint History Of Prese nt Illness No Information Instructions Date Instruction Additional Infor mation No Information Assessments Type Assessment Date No Information
--- OUTSIDE RECORDS SUMMARY | 2024-07-13 12:22 | XMS_ITS | Continuity of Care Document ---
Author Organization [facility] an[facility] Care Address [address] [place] [address]- Care Team Providers Care Data Analytics Chief Scientist Name Role Phone Nava Pat MD Primary Care Phys[id number] Date(s): 03/09/24 - 07/11/[address] [address] Discharge Disposition: A-D/C Home Attending Physician: Beena CUEVAS, Luther Admitting Physician: Nikhil CUEVAS, Edgar Referring Physician: Axel Feldman MD Encounter Type: Disch Recurring OP Allergies, Adverse Reactions, Alerts Substance Criticality Severity Reaction Reaction Severity Status penicillins Rash Active Percocet 5/325 GI Upset Activ e Medications acetaminophen 325 mg oral tablet 650 mg, By Mouth, Every 6 hours, not to exceed 3000 mg/day, Refills 0, Maintenance, 07/05/24 6:39:00AM EDT, Partial fill upon patient request if the prescription is for a schedule II opioid drug. Start Date: 07/05/24 Status: Ordered Repeat number: 1 Judie 24 Hour Allergy = 180 mg, By Mouth, Daily in AM, 0 Refills, Maintenance, 02/09/24 10:02:00 AM EST, Partial fill upon patient request if the prescription is for a schedule II opioid drug. Start Date: 02/09/24 Status: Ordered Repeat number: 1 anastrozole 1 mg oral tablet 1 tablet, By Mouth, Daily, # 30 tablet, 3 Refills, Maintenance, 05/08/24 10:38:00 AM EST, [id number], 175.9, cm, 04/11/24 15:03:00 EST, Height, 118, kg, 04/11/24 15:03:00 EST, Dry Weight Start Date: 05/08/24 Status: Ordered Quantity: 30.0 Unit: tablet Repeat number: 1 Arnuity Ellipta 100 mcg inhalation powder 1 puffs = 100 mcg, Inhalation, Daily in AM, # 30 each, 0 Refills, Maintenance, 02/09/24 10:29:00 AMEST, Powder, Partial fill upon patient request if the prescription is for a schedule II opioid drug. Start Date: 02/09/24 Status: Ordered Quantity: 30.0 Unit: each Repeat number: 1 celecoxib 200 mg oral capsule = 200 mg, By Mouth, Daily, 0 Refills, Maintenance, 07/05/24 6:39:00 AM EDT, Capsule, Partial fill upon patient request if the prescription is for a schedule II opioid drug. Start Date: 07/05/24 Status: Ordered Repeat number: 1 Colace Capsule 100 mg, 1, capsule, By Mouth, 2 times a day, PRN, Refills 0, Maintenance, as needed for constipation, 07/05/24 6:40:00 AM EDT, Partial fill upon patient request if the prescription is for a schedule II opioid drug. Start Date: 07/05/24 Status: Ordered Repeat number: 1 Eliquis 2.5 mg oral tablet 1 tablet = 2.5 mg, By Mouth, 2 times a day, # 60 tablet, 0 Refills, Maintenance, 07/05/24 6:38:00 AMEDT, Tablet, [facility] 3, Partial fill upon patient request if the prescription is fora schedule II opioid drug., 175.9, cm, 07/05/24 6:17:00 EDT, Height, 118.8, kg, 07/04/24 17:11:00 EDT, Dry Weight Start Date: 07/05/24 Stop Date: 08/04/24 Status: Ordered Quantity: 60.0 Unit: tablet Repeat number: 1 Flonase = 50 mcg, Daily, PRN Other, for seasonal allergies, 0 Refills, Maintenance, 02/09/24 10:01:00 AM EST, Partial fill upon patient request if the prescription is for a schedule II opioid drug. Start Date: 02/09/24 Status: Ordered Repeat number: 1 HYDROmorphone 2 mg oral tablet = 2 mg, By Mouth, Every 4 hours, PRN Pain , Severe, for 7 days, or Mild pain unrelieved by Tramadol, # 42 tablet, 0 Refills, Acute 07/12/24 6:38:00 AM EDT, 07/05/24 6:38:00 AM EDT, Tablet, [facility], Partial fill upon patient request if the prescription is for a schedule II opioid drug., 175.9, cm, 07/05/24 6:17:00 EDT, Height, 118.8, kg, 07/04/24 17:11:00 EDT, Dry Weight Start Date: 07/05/24 Stop Date: 07/12/24 Status: Ordered Quantity: 42.0 Unit: tablet Repeat number: 1 pantoprazole 40 mg oral delayed release tablet = 40 mg, By Mouth, Daily, 0 Refills, Maintenance, 07/05/24 6:40:00 AM EDT, EC Tablet Start Date: 07/05/24 Status: Ordered Repeat number: 1 ProAir HFA [...] Date: 01/03/24 Status: Ordered Repeat number: 1 traMADol 50 mg oral tablet See Instructions, PRN Pain , Mild, 1-2 tablets By Mouth Every 6 hours not to exceed 400 mg/day, # 56 tablet, 0 Refills, Acute 07/12/24 8:00:00 AM EDT, 07/05/24 6:37:00 AM EDT, Tablet, [facility], Partial fill upon patient request if the prescription is for a schedule II opioid drug., 175.9, cm, 07/05/24 6:17:00 EDT, Height, 118.8, kg, 07/04/24 17:11:00 EDT, Dry Weight Start Date: 07/05/24 Stop Date: 07/12/24 Status: Ordered Quantity: 56.0 Unit: tablet Repeat number: 1 Problem List Condition Confirmation Course Effective Dates Status Health St atus Informant Anxiety Confirmed Active Asthma Confirmed Active History of pulmonary embolism Confirmed Active History of DVT of lower extremity Confirmed Active HTN (hypertension) Confirmed Active Palpitations Confirmed Active PAD (peripheral artery disease) Confirmed Active Severe obesity (BMI 35.0-39.9) with comorbidity Confirmed Active Vital Signs Most recent to oldest [Reference Range]: 1 2 Height 175.9 cm (04/11/24 3:03 PM) 175.9 cm (03/30/24 9:09 AM) Weight 118 kg (04/11/24 3:03 PM) 116.7 kg (03/30/24 9:09 AM) Oxygen Saturation [94-100 %] 95 % (04/11/24 3:03 PM) 98 % (03/30/24 9:09 AM) Pulse Rate [55-90 bpm] 85 bpm (04/11/24 3:03 PM) 80 bpm (03/30/24 9:09 AM) Body Mass Index [18.5-24.99 kg/m2] 38.14 kg/m2 *>HHI* (04/11/24 3:03 PM) 37.72 kg/m2 *>HHI* (03/30/24 9:09 AM) Blood Pressure [90-138/55-84 mm Hg] 152/ 91mm Hg *H* (04/11/24 3:03 PM) 160/90mm Hg *H* (03/30/24 9:09 AM) Temperature [96.8-100.4 DegF] 98.5 DegF (04/11/24 3:03 PM) 97.8 DegF (03/30/24 9:09 AM) Mode of Delivery (Oxygen) Room air (04/11/24 3:03 PM) Room air (03/30/24 9:09 AM) Blood pressure sites Arm, left (04/11/24 3:03 PM) Arm, left (03/30/24 9:09 AM) Temperature Route Temporal (04/11/24 3:03 PM) Oral (03/30/24 9:09 AM) Dry Weight 118 kg (1/28/25 3:03 PM) 116.7 kg (03/30/24 9:09 AM) Weight Obtained Via Standing scale (04/11/24 3:03 PM) Standing scale (03/30/24 9:09 AM) Dry Weight Obtained Via Standing scale (04/11/24 3:03 PM) Standing scale (03/30/24 9:09 AM) Social History Social History Type Response Smoking Status Never (less than 100 in lifetime) entered on: 01/03/24 Sex Sex Representation Female (finding) Patient Care team information Care Team Personnel Name: Nava Pat MD Position: [facility] Physician - Primary Care Member Role: PCP Address: [facility] [address] Telecom: Name: Renetta Riojas RN Position: [facility] SN RN Member Role: Primary Care Nurse Name: Padmini Childs RN Position: S RN Member Role: Primary Care Nurse Name: Laura Arellano RN Position: [facility] RN Member Role: Primary Care Nurse Name: Jaye Coffey RN Position: S RN Member Role: Primary Care Nurse Name: Aydin Jimenez RN Position: [facility] SN RN Member Role: Primary Care Nurse Care Team Related Persons Name: JERARDO ZHENG Insurance Providers Guarantor name: VERONICA ZHENG Health Plan Information #: 2 Payer: [employer] Member Number: [id number] Policy Number: NA Group Number: [id number] Health Plan Information #: 1 Payer: MEDICARE PART B OUTPT Member Number: [id number] Policy Number: NA Group Number: [id number]
--- OUTSIDE RECORDS SUMMARY | 2024-07-13 12:22 | XMS_ITS ---
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 [address] [place] [address] 12/28/2023 Saloni Dooleyva Intraductal carcinoma in situ [...] Provider Name:Saloni russo, 09/21/2024 10:40:00 AM, [address], [address], [place], [address], Progress Notes * NORA ZHENG:[birth year] (68 yo F)Acc No.[id number]:12/28/2023 PROGRESS NOTES Patient:?VERONICA ZHNEG Number:[id number] Appointment Provider:?Saloni russo M.D. :1955???Age:68 Y???Sex:Female D ate:12/28/2023 Address:[address] [place] [address] , , [place] [id number] Pcp:Nava Pat MD Subjective: * Chief Complaints: * ???BREAST BX RESULTS * HPI: ???New/Follow-up Patient Consult:? PAT UNDERWENT RIGHT BREAST BIOPSY FOR ABNORMAL MAMMOGRAM FINDINGS AND THIS SHOWED DCIS, INTERMEDIATE GRADE, ESTROGEN AND PROGESTERONE RECEPTOR POSITIVE.? SHE IS HERE TO DISCUSS THE RESULTS. * ROS:?general:?no?chest pain.?no?palpitations.?no?headache.?no?cough.?no?shortness of breath.?no?fever.?no?unexplained weight loss.?no?nausea/vomiting.?no?change in bowel movements.?no blood in stool.?no?genitourinary complaints.?no?skin complaints.? * Medical History:? * [place]. 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 * Surgical History:?[place] [facility] th Lt foot Surgery Lt knee [...] Loving M.D. Date:?12/28/2023 Generated for Oz jimenez/Viji/Kendallitting on:?07/13/2024 12:22 PM EDT History and Physical Notes * HPI (History of Present Illness) Category Sub-Category Detail Notes Category Not es New/Follow-up Patient Consult PAT UNDERWENT RIGHT BREAST BIOPSY FOR ABNORMAL MAMMOGRAM FINDINGS AND THIS SHOWED DCIS, INTERMEDIATE GRADE, ESTROGEN AND PROGESTERONE RECEPTOR POSITIVE. SHE IS HERE TO DISCUSS THE RESULTS.
--- OUTSIDE RECORDS SUMMARY | 2024-07-13 12:23 | XMS_ITS ---
Author Organization [employer] Address [address] [facility] [address] [place] [address] Care Team Providers Care Field Reviewer Name Role Phone Nava Pat MD Primary Care Provider Saloni Kovacs [phone] REASON FOR VISIT BREAST BX SCHEDULED Encounters Encounter Location Date Provider Diagnosis [facility] [address] [place] [address] [address] [place] [address] 12/15/2023 Saloni Loving Plan Of Treatment Next Appt Details Provider Name:Saloni russo, 09/21/2024 10:40:00 AM, [address] [facility], [address], [place], [address], Progress Notes * JOSH ZHENGNATALIIADOB:[birth year] (68 yo F)Acc No.[id number]:12/15/2023 Patient:?VERONICA ZHENG :1955???Age:68 Y???Sex:Female Address:[address] [place] [address] , , [place], [address] * true * Date:? Generated for Printi barbara/Viji/eTransmitting on:?07/13/2024 12:23 PM EDT
--- OUTSIDE RECORDS SUMMARY | 2024-07-13 12:23 | XMS_ITS | Patient Health Record ---
Author Organization [employer] [facility] Address [address] [facility] [address] [place] [address] Care Team Providers Care Content Director Name Role Phone Nava Pat MD Primary Care Provider Saloni Kovacs Unavailable [phone] Allergies Allergen (clinical drug ingredient) Drug/Non Drug Allergy documented on EMR Reaction Allergy Type Onset Date Status PENICILLIN Skin Rash Drug Allergy Active erythromycin ERYTHROMYCIN Skin Rash Drug Allergy A ctive Results Component Value Reference Range Notes [id number] [id number] No Culture 30 Plus Reviewed date:09/23/2023 08:21:10 AM Interpretation: Performing Lab:[facility] [place], [address], [address], [place], Phone - [phone], Director - [facility] Notes/Report: Clinical Information:Vaginal/Cervical, LMP: Men o [id number] Dates / Results....09/08/21 NIL, Neg HPV Other..............Post Menopausal No. of containers..01 ThinPrep Vial DIAGNOSIS: NEGATIVE FOR IN TRAEPITHELIAL LESION OR MALIGNANCY. Specimen adequacy: Satisfactory for evaluation. Endocervical and/or squamous metaplastic cells (endocervical component) are present. Clinician provided ICD10: Z0 1.419 Performed by: Augustus Knowles , Header Boss (ASCP) . . Note: The Pap smear [...] Report Reviewed date:09/23/2023 08:20:49 AM Interpretation: Performing Lab:[facility] [place], [address], [address], [place], Phone - [phone], Director - [facility] Notes/Report: Clinical Information:Vaginal/Cervical, LMP: Men o [id number] Dates / Results....09/08/21 NIL, Neg HPV Other..............Post Menopausal No. of containers..01 ThinPrep Vial Reason For Referral No Information Medications Medication SIG (Take, Route, Frequency, Duration) Notes Start Date End Date Status Flonase 50 MCG/ACT 1 spray in each nost ril Nasally Once a day Active Aleve 220 MG 1 tablet as needed O rally 24 Active Baby Aspirin Active Sertraline HCl 100 MG 1 tablet Orally On ce a day for 90 days Active Multi-Vitamin - 1 tablet Orally Once a day Active Turmeric Active Arnuity Ellipta 100 MCG/ACT Inhalation for 90 Days Activ e Centrum - Orally Active Judie Allergy 180 MG 1 tablet as neede d Orally Once a day Active Social History Tobacco Use: Social History [...] Problem Status W/U Status Risk Notes Problem Postmenopausal state (66993622) Asymptomatic menopausal state (Z78.0) Active confirmed Problem Postmenopausal atrophic vaginitis (12311481) Postmenopausal atrophic vaginitis (N95.2) Active confirmed Problem Intraductal carcinoma in situ of right breast (1131513392216166 ) 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 Problem Osteoarthritis (968280970) Unspecified osteoarthritis, unspecified site (M19.90) Active confirmed Problem Screening for malignant neoplasm of breast (789579686) Encounter for screening mammogram for malignant neoplasm of breast (Z12.31) Active confirmed Problem Screening for osteoporosis (664981488) Encounter for screening for osteoporosis (Z13.820) Active confirmed Problem Cardiac arrhythmia (172811266) Unspecified cardiac dysrhythmia (427.9) Active confirmed Diag Problem Asthma (disorder) (075774948) Asthma, unspecified, unspecified status (493.90) Active confirmed Major Problem Menopausal symptom (23649285) Symptomatic menopausal or female climacteric states (627.2) Active confirmed Major Problem Osteoarthritis (430009404) Osteoarthrosis, unspecified whether generalized or localized, unspecified site (715.90) Active confirmed Major Problem Gynecological examination normal (320420259691746) Routine gynecological examination (V72.31) Active confirmed Major Problem Screening for malignant neoplasm of colon (014336982) Special screening for malignant neoplasms, colon (V76.51) Active confirmed Major Vital Signs Temperature 97.5 degrees Fahrenheit 12/28/2023 Blood pressure diastolic 86 mm Hg 12/28/2023 Height 69.5 in 12/28/2023 Blood pressure systolic 124 mm Hg 12/28/2023 Weight 252 lbs 12/28/2023 BMI 36.68 kg/m2 12/28/2023 Encounters Encounter Location Date Provider Diagnosis [facility] [facility] [address] [place] [address] 09/20/2023 Saloni Loving Encounter for gynecological examination (general) (routine) without abnormal findings Z01.419 ; Encounter for screening mammogram for malignant neoplasm of breast Z12.31 and Pain in right hip M25.551 [facility] [facility] [address] [place] [address] 12/28/2023 Saloni Loving Intraductal carcinom a in situ of right breast D05.11 [facility] [address] [place] [address] 12/15/2023 Saloni Loving [facility] [address] [place] [address] 06/22/2024 Saloni Loving Assessments Encounter Date Diagnosis (ICD Code) Assessment Notes Treatment Notes Treatment Clinical Notes Section Notes 09/20/2023 Encounter for gynecological examination (general) (routine) without abnormal findings (ICD-10 - Z01.419) PAP TEST WITH HPV TYPING WAS OBTAINED. 12/28/2023 Intraductal carcinoma in situ of right breast (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 DISCUSSED IMPLICATIONS OF THE REPORT AND NEED FOR SURGICAL CONSULTATION AND POSSIBLE TX OPTIONS INCLUDING LUMPECTOMY AND ANTI ESTROGENS. PAT HAS AN APPT TO SEE DR MOLINA THIS DEC 2023. SHE IS ON SERTRALINE AND REFUSED ANXIETY PREVENTING MEDS LIKE ATIVAN. SHE TOOK THE NEWS WELL. 09/20/2023 Encounter for screening mammogram for malignant neoplasm of breast (ICD-10 - Z12.31) REGULAR MAMMOGRAMS AND SBE'S WERE RECOMMENDED. 09/20/2023 Pain in right hip (ICD-10 - M25.551) DISCUSSED COMMON CAUSES OF JOINT PAINS. RECOMMENDED SHE SEE HER PCP FOR FURTHER EVALUATION AND MX. HER PAINS MAY NOT BE JUST DUE TO MUSCLE SPASMS. Plan Of Treatment Pending Test Test Name Order Date MAMMOGRAM, SCREENING 01/24/2015 MAMMOGRAM, SCREENING 09/10/2022 MAMMOGRAM, SCREENING 09/20/2023 Urinalysis 06/28/2018 THIN PREP,HPV,HARI IF HPV+ (>29YR)(SCRN) 03/23/2017 BONE DENSITY 09/08/2021 MM Digital Mammo Screening 09/10/2022 MM Digital Mammo Screening 09/20/2023 MM Digital Mammo Screening 09/08/2021 Next Appt Details Provider Name:Saloni russo, 09/21/2024 10:40:00 AM, [address], [place], [address], Insurance Providers Payer Name Payer Address Payer Phone Subscriber Number Group Number Insured Name Patient Relationship to Insured Coverage Start Date Coverage End Date MEDICARE [address] [place] [id number] [phone] [id number] VERONICA ZHENG Self - patient is the insured [facility] [address] [place] [address] [phone] [id number] VERONICA ZHENG Self - patient is the insured Medical (General) History Medical History History ICD Code Cardiac arrhythmia, unspecified I49.9 Unspecified osteoarthritis, unspecified site M19.90 Other asthma J45.998 Menopausal and female climacteric states N95.1 Anxiety disorder, unspecified F41.9 Adjustment disorder with anxiety F43.22 Postmenopausal atrophic vaginitis N95.2 Unspecified osteoarthritis, unspecified site M19.90 Asymptomatic menopausal state Z78.0 Surgical History Surgery Date(Month/Year) [place] Teeth Lt foot Surgery Lt knee surgery x2 Colonoscopy Bilateral Tubal Ligation Screw Removal from Loose Plate in Foot Rt Knee Replacement 08/03/2018 Lt Knee Hardware removal 10/2018 Lt Knee Replacement 12/2017 Right Breast Bx 12/21/23 Hospitalization History Reason Date(Month/Year) See Surgical Hx 3 Vaginal Deliveries
== END 2024-07-13 11:44 | disposition home or self-care (01) ==
LOC: HO.HMCC 10:47
PROVIDERS: PCP Internal Medicine; Visit Provider Internal Medicine
DX: R32 Unspecified urinary incontinence (principal); J45.909 Unspecified asthma, uncomplicated; Z96.641 Presence of right artificial hip joint

== ENCOUNTER 2024-07-14 08:40 | Outpatient (REF) | payer MEDICARE, OTHER, SELFPAY ==
--- OUTSIDE RECORDS SUMMARY | 2024-07-14 09:57 | XMS_ITS | Continuity of Care Document ---
Author Organization [facility] Address [address] [place] [address]- Care Team Providers Care Rpg Developer Name Role Phone Nava Pat MD Primary [id number]): [facility] 07[facility]13/24 [facility] [address] [place] [address]- Attending Physician: Jero Berry MD Admitting Physician: Jero Berry MD Referring Physician: Jero Berry MD Encounter Type: Pre-Outpt Allergies, Adverse Reactions, Alerts Substance Criticality Severity [...] 3 Refills, Maintenance, 05/08/24 10:38:00 AM EST, [id number], 175.9, cm, 04/11/24 15:03:00 EST, Height, 118, [...] 0 Refills, Maintenance, 07/05/24 6:38:00 AMEDT, Tablet, [facility] 3, Partial fill upon patient request [...] Date: 02/09/24 Status: Ordered Repeat number: 1 pantoprazole 40 mg oral [...] Date: 01/03/24 Status: Ordered Repeat number: 1 Problem List [...] Team Personnel Name: Nava Pat MD Position: [facility] Physician - Primary Care Member Role: PCP Address: [address] [place] [address] Telecom: Name: Renetta Riojas RN Position: [facility] SN RN Member Role: Primary Care Nurse Name: Padmini Childs RN Position: [facility] RN Member Role: Primary Care Nurse Name: Laura Arellano RN Position: [facility] RN Member Role: Primary Care Nurse Name: Jaye Coffey RN Position: [facility] RN Member Role: Primary Care Nurse Name: Aydin Jimenez RN Position: [facility] RN Member Role: Primary Care Nurse Care Team Related Persons Name: JERARDO ZHENG Insurance Providers Guarantor name: VERONICA ZHENG Health Plan Information #: 2 Payer: [employer] Member Number: [id number] Policy Number: NA Group Number: [id number] Health Plan Information #: 1 Payer: MEDICARE PART B OUTPT Member Number: [id number] Policy Number: NA Group Number: NA
--- OUTSIDE RECORDS SUMMARY | 2024-07-14 09:57 | XMS_ITS ---
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 Vital Signs Temperature 97.5 degrees Fahrenheit 12/28/19 24 Blood pressure systolic 124 mm Hg 12/28/19 24 Blood pressure diastolic 86 mm Hg 024 Height 69.5 in 12/28/2023 Weight 252 lbs 12/28/2023 BMI 36.68 kg/m2 12/28/2023 Encounters Encounter Location Date Provider Diagnosis [facility] [address] [place] [address] 12/28/2023 Saloni Dooleyva Intraductal carcinoma in situ [...] Provider Name:Saloni russo, 09/21/2024 10:40:00 AM, [address], [address], [place], [address], Progress Notes * NORA ZHENG:[birth year] (68 yo F)Acc No.[id number]:12/28/2023 PROGRESS NOTES Patient:?VERONICA ZHENG Number:[id number] Appointment Provider:?Saloni russo M.D. :1955???Age:68 Y???Sex:Female D ate:12/28/2023 Address:[address] [place] [address] , , [place] [id number] Pcp:Nava Pat MD Subjective: * Chief Complaints: * ???BREAST BX RESULTS * HPI: ???New/Follow-up Patient Consult:? PAT UNDERWENT RIGHT BREAST BIOPSY FOR ABNORMAL MAMMOGRAM FINDINGS AND THIS SHOWED DCIS, INTERMEDIATE GRADE, ESTROGEN AND PROGESTERONE RECEPTOR POSITIVE.? SHE IS HERE TO DISCUSS THE RESULTS. * ROS:?general:?no?chest pain.?no?palpitations.?no?headache.?no?cough.?no?shortness of breath.?no?fever.?no?unexplained weight loss.?no?nausea/vomiting.?no?change in bowel movements.?no blood in stool.?no?genitourinary complaints.?no?skin complaints.? * Medical History:? 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 * Surgical History:?[place] [facility] th Lt foot Surgery Lt [...] Loving M.D. Date:?12/28/2023 Generated for Oz jimenez/Viji/Kendallitting on:?07/14/2024 09:57 AM EDT History and Physical Notes * HPI (History of Present Illness) Category Sub-Category Detail Notes Category Not es New/Follow-up Patient Consult PAT UNDERWENT RIGHT BREAST BIOPSY FOR ABNORMAL MAMMOGRAM FINDINGS AND THIS SHOWED DCIS, INTERMEDIATE GRADE, ESTROGEN AND PROGESTERONE RECEPTOR POSITIVE. SHE IS HERE TO DISCUSS THE RESULTS.
--- OUTSIDE RECORDS SUMMARY | 2024-07-14 09:57 | XMS_ITS | Continuity of Care Document ---
Author Organization [facility] Address [address], [address] [place] [address] Phone Care Team Providers Care Rehabilitation Services Aide Name Role Phone Unavailable Unavailable Unavailable Results Test Name Date and Time Measure Units Reference Range Abnormal Flag Status Comments Panel Description: Culture, Genital Final FINAL REPORT 13:18:00 NORMAL VAGINAL BALDEMAR NR Final Advance Directives Directive Yes / No Effective Date File Name No Information Encounters Encounter Description Practice Location Reason(s) For Visit Diagnoses Date Provider [facility], [address], [address], [place], [id number], [place] tel:[phone] CLOSED [facility] No Information 2010 No Information Family History [...]
--- OUTSIDE RECORDS SUMMARY | 2024-07-14 09:57 | XMS_ITS ---
Author Organization [employer] Address [address] [facility] [address] [place] [address] Care Team Providers Care Horticulture Instructor Name Role Phone Nava Pat MD Primary Care Provider Saloni Kovacs [phone] REASON FOR VISIT LT BREAST MAMMO Encounters Encounter Location Date Provider Diagnosis [facility] [employer] [address] [place] [address] [address] [place] [address] 06/22/2024 Saloni Loving Plan Of Treatment Next Appt Details Provider Name:Saloni russo, 09/21/2024 10:40:00 AM, [address] [facility], [address], [place], [address], Progress Notes * VERONICA ZHENGDOB:[birth year] (68 yo F)Acc No.[id number]:06/22/2024 Patient:?VERONICA ZHENG :1955???Age:68 Y???Sex:Female Address:[address] [place] [address] , , [place], [address] * true * Date:? Generated for Printi barbara/Viji/eTransmitting on:?07/14/2024 09:57 AM EDT
--- OUTSIDE RECORDS SUMMARY | 2024-07-14 09:58 | XMS_ITS ---
Author Organization [employer] Address [address] [facility] [address] [place] [address] Care Team Providers Care Career Placement Services Counselor Name Role Phone Nava Pat MD Primary Care Provider Saloni Kovacs [phone] REASON FOR VISIT BREAST BX SCHEDULED Encounters Encounter Location Date Provider Diagnosis [facility] [employer] [address] [place] [address] [address] [place] [address] 12/15/2023 Saloni Loving Plan Of Treatment Next Appt Details Provider Name:Saloni russo, 09/21/2024 10:40:00 AM, [address] [facility], [address], [place], [address], Progress Notes * JOSH ZHENGNATALIIADOB:[birth year] (68 yo F)Acc No.[id number]:12/15/2023 Patient:?VERONICA ZHENG :1955???Age:68 Y???Sex:Female Address:[address] [place] [address] , , [place], [address] * true * Date:? Generated for Printi barbara/Viji/eTransmitting on:?07/14/2024 09:57 AM EDT
--- OUTSIDE RECORDS SUMMARY | 2024-07-14 09:58 | XMS_ITS | Patient Health Record ---
Author Organization [employer] [facility] Address [address] [facility] [address] [place] [address] Care Team Providers Care Taker Off Name Role Phone Nava Pat MD Primary Care Provider Saloni Kovacs Unavailable [phone] Allergies Allergen (clinical drug ingredient) Drug/Non Drug Allergy documented on EMR Reaction Allergy Type Onset Date Status PENICILLIN Skin Rash Drug Allergy Active erythromycin ERYTHROMYCIN Skin Rash Drug Allergy A ctive Results Component Value Reference Range Notes [id number] IGP No Culture 30 Plus Reviewed date:09/23/2023 08:21:10 AM Interpretation: Performing Lab:[facility] [place], [address], [address], [place], Phone - [phone], Director - [facility] Notes/Report: Clinical Information:Vaginal/Cervical, LMP: Men o [id number] Dates / Results....09/08/21 NIL, Neg HPV Other..............Post Menopausal No. of containers..01 ThinPrep Vial DIAGNOSIS: NEGATIVE FOR IN TRAEPITHELIAL LESION OR MALIGNANCY. Specimen adequacy: Satisfactory for evaluation. Endocervical and/or squamous metaplastic cells (endocervical component) are present. Clinician provided ICD10: Z0 1.419 Performed by: Augustus Knowles , Corporate Quality Manager (ASCP) . . 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 Problem Osteoarthritis (182885746) Unspecified osteoarthritis, unspecified site (M19.90) Active confirmed Problem Screening for malignant neoplasm of breast (472972380) Encounter for screening mammogram for malignant neoplasm of breast (Z12.31) Active confirmed Problem Screening for osteoporosis (298233462) Encounter for screening for osteoporosis (Z13.820) Active confirmed Problem Cardiac arrhythmia (247924797) Unspecified cardiac dysrhythmia (427.9) Active confirmed Diag Problem Asthma (disorder) (064755028) Asthma, unspecified, unspecified status (493.90) Active confirmed Major Problem Menopausal symptom (02393121) Symptomatic menopausal or female climacteric states (627.2) Active confirmed Major Problem Osteoarthritis (598331598) Osteoarthrosis, unspecified whether generalized or localized, unspecified site (715.90) Active confirmed Major Problem Gynecological examination normal (879755371363352) Routine gynecological examination (V72.31) Active confirmed Major Problem Screening for malignant neoplasm of colon (869976786) Special screening for malignant neoplasms, colon (V76.51) Active confirmed Major Vital Signs Temperature 97.5 degrees Fahrenheit 12/28/2023 Blood pressure diastolic 86 mm Hg 12/28/2023 Height 69.5 in 12/28/2023 Blood pressure systolic 124 mm Hg 12/28/2023 Weight 252 lbs 12/28/2023 BMI 36.68 kg/m2 12/28/2023 Encounters Encounter Location Date Provider Diagnosis [facility] [address] [place] [address] 09/20/2023 Saloni Loving Encounter for gynecological examination (general) (routine) without abnormal findings Z01.419 ; Encounter for screening mammogram for malignant neoplasm of breast Z12.31 and Pain in right hip M25.551 [facility] [address] [place] [address] 12/28/2023 Saloni Loving Intraductal carcinom a in situ of right breast D05.11 [facility] [address] [place] [address] 12/15/2023 Saloni Loving [facility] [address] [place] [address] 06/22/2024 Saloni Loving Assessments Encounter Date Diagnosis [...] Test Test Name Order Date MAMMOGRAM, SCREENING 09/10/2022 MAMMOGRAM, SCREENING 09/20/2023 MAMMOGRAM, SCREENING 01/24/2015 Urinalysis 06/28/2018 THIN PREP,HPV,HARI IF HPV+ (>29YR)(SCRN) 03/23/2017 BONE DENSITY 09/08/2021 MM Digital Mammo Screening 09/10/2022 MM Digital Mammo Screening 09/08/2021 MM Digital Mammo Screening 09/20/2023 Next Appt Details Provider Name:Saloni russo, 09/21/2024 10:40:00 AM, [address], [address], [place], [address], Insurance Providers Payer Name Payer Address Payer Phone Subscriber Number Group Number Insured Name Patient Relationship to Insured Coverage Start Date Coverage End Date MEDICARE [address] [place] [id number] VERONICA ZHENG Self - patient is the insured [facility] [address] [place] [address] [id number] VERONICA ZHENG Self - patient is the insured Medical (General) History Medical History History ICD Code Cardiac arrhythmia, unspecified I49.9 Unspecified osteoarthritis, unspecified site M19.90 Other asthma J45.998 Menopausal and female climacteric states N95.1 Anxiety disorder, unspecified F41.9 Adjustment disorder with anxiety F43.22 Postmenopausal atrophic vaginitis N95.2 Unspecified osteoarthritis, unspecified site M19.90 Asymptomatic menopausal state Z78.0 Surgical History Surgery Date(Month/Year) [place] Teeth Lt foot Surgery Lt knee surgery x2 Colonoscopy Bilateral Tubal Ligation Screw Removal from Loose Plate in Foot Rt Knee Replacement 08/03/2018 Lt Knee Hardware removal 10/2018 Lt Knee Replacement 12/2017 Right Breast Bx 12/21/23 Hospitalization History Reason Date(Month/Year) See Surgical Hx 3 Vaginal Deliveries
[2024-07-14 10:05] LABS: Appearance Urine Clear; Color Urine Yellow; Glucose Urine UA Negative (Negative); Leukocyte Esterase Urine Small (1+) (Negative); Nitrite Urine Negative (Negative); PH 6.5 (5.0-9.0); Specific Gravity - Urine 1.025 (1.005-1.025); UMIC TRIGGER UA YES; Urine Blood Negative (Negative); Urine Ketones Negative (Negative); Urine Protein Negative (Neg-Trace)
[2024-07-14 10:08] LABS: Bacteria Urine None Seen (None Seen); Hyaline Casts Urine 0-2 /LPF (0-2); RBC Urine 0-2 /HPF (0-2)
== END 2024-07-14 08:41 | disposition home or self-care (01) ==
LOC: HO.HMGCLNP 08:40
PROVIDERS: PCP Internal Medicine; Visit Provider Internal Medicine
DX: R32 Unspecified urinary incontinence (principal)
CPT/HCPCS: 81001; 87086

== ENCOUNTER 2025-03-13 11:58 | Outpatient (AMB) | payer MEDICARE, OTHER, SELFPAY ==
[2025-03-13 12:29] VITALS: BP 142/78; PULSE 61; TEMP 36.6; O2SAT 95; BMI 37.4
--- NOTE | 2025-03-13 12:29 | AM.OFFWIN_ITS ---
Intake Vital Signs 03/13/25 12:29 Height 5 ft 10 in Weight 261 lb BMI 37.4 BP 142/78 H Blood Pressure Location Lt brachial Position Sitting Pulse 61 Pulse Source Pulse Oximeter Temp 98 F Temp Source Oral Pulse Oximetry (%) 95 Oxygen Delivery Method Room Air Intake Visit Reasons: EP-cough, chest congestion, chills Intake Note: Patient presents c/o cough, chest congestion, difficulty breathing, wheezing, night sweats x2 weeks. Patient Tobacco Use Status: Never used Tobacco Allergies penicillin G Allergy (Unknown, Verified 03/13/25 12:34) rash/change in personality acetaminophen (From Percocet) Allergy (Verified 03/13/25 12:34) itchy, oxycodone (From Percocet) Allergy (Verified 03/13/25 12:34) itchy, citalopram Adverse Reaction (Unknown, Verified 03/13/25 12:34) nose bleed From PEN-VEE K Allergy (Severe, Uncoded 03/13/25 12:34) RASH, SOB HPI HPI Comments History of Present Illness Details Patient is a 69yo F who presents with cough symptoms Ongoing x 2 weeks Started as runny nose Moved into dry cough which pt took Desaum for with minimal relief Cough causes her to stay awake all night Has tried tea, honey, hot showers Now cough is productive of yellow/light green phlegm She admits to chills but had sweats last night. No documented temp. Some SOB with cough No ear pain or ST No worsening fatigue and body aches from baseline [facility] Medical History Hyperglycemia Mammogram normal Normal Pap smear Hyperlipidemia Abnormal colonoscopy Anxiety Asthma Asthmatic bronchitis Palpitation Annual physical exam Surgical History H/O right breast biopsy H/O colonoscopy History of bilateral knee replacement History of foot surgery History of knee surgery Family History Father Dementia Parkinson disease Mother Dementia Mental health disorder Brother No problems noted. Son No problems noted. Son No problems noted. Daughter No problems noted. Social History Household Members Other:: Housing: House Alcohol intake: current Alcohol intake frequency: a few times a week Patient Tobacco Use Status: Never used Tobacco e-Cigarette/Vaping Use: Never Used Second Hand Smoke Exposure: Yes service: No Current occupational status: retired Cognitive needs: No Hearing needs: No Vision needs: No Review of Systems Const Reports chills, Reports fatigue and Reports fever(s) ENT Denies otalgia, Reports nasal congestion and Denies sore throat Card Denies chest pain and Reports dyspnea Resp Reports change in phlegm color, Reports chest congestion, Reports cough and Reports dyspnea Endo Reports fatigue Physical Exam Exam Exam: General: Non-toxic, NAD. Speaking full sentences. Skin: Warm dry throughout Eye: EOMI HENT: Airway patent. Uvula midline. No pharyngeal erythema or edema. No CORPORATE ATTORNEY. Bilateral canals clear. TM non-erythematous, non-bulging. No TM perforation or hemotympanum noted. Respiratory: No accessory muscle use or stridor. + rales Left upper lobe. No wheezes or rhonchi Cardiac: RRR. No murmur MSK: Full ROM extremities. Neurology: Alert. No aphasia or facial droop. Gait without abnormality Psych: Good mood and affect Vital Signs: Last Vital Signs Temp 98 F 03/13/25 12:29 Pulse 61 03/13/25 12:29 BP 142/78 H 03/13/25 12:29 Pulse Ox 95 03/13/25 12:29 Oxygen Delivery Method Room Air 03/13/25 12:29 BMI result Body Mass Index 37.4 Assessment & Plan Assessment & Plan (1) Pneumonia: Code(s): J18.9 - Pneumonia, unspecified organism Qualifiers: Pneumonia type: due to unspecified organism Laterality: left Lung location: upper lobe of lung Qualified Code(s): J18.9 - Pneumonia, unspecified organism Plan: Patient seen and evaluated. + abnormal lung sounds to JEREMY Discussed chext xray but pt would like to hold at this time Will cover with doxy and tessalon We discussed worsening s/s while on antibiotic that require Chest xray and eval such as SOB, fever, worsening cough, CP and she gave verbal understanding and had no additional questions at time of discharge All questions answered Medications: New doxycycline hyclate 100 mg PO BID 20 caps 0RF benzonatate 100 mg PO BID-TID PRN 14 caps 0RF cough Coding Level of Care Code Est Pt Level 3 (15318) Diagnoses Pneumonia of left upper lobe due to infectious organism J18.9 Pneumonia type: due to unspecified organism Laterality: left Lung location: upper lobe of lung
--- OUTSIDE RECORDS SUMMARY | 2025-03-13 16:00 | XMS_ITS | Patient Health Record ---
Author Organization [facility] Address [address] [place] [address] Care Team Providers Care Fashion Designer Name Role Phone Nava Pat MD Primary Care Provider Rhett Funez Jr Unavailable Allergies Allergen (clinical drug ingredient) Drug/Non Drug Allergy documented on EMR Reaction Allergy Type Onset Date Status penicillin G Penicillin G Sodium Unknown Drug Allergy Active Reason For Referral No Information Medications Medication SIG (Take, Route, Frequency, Duration) Notes Start Date End Date Status Atenolol 12.5 mg 1 tablet Orally Once a day Active Aleve 220 MG Tablet 1 tablet with food o r milk as needed Orally every 12 hrs Active Centrum Silver - Tablet as directed Orally Active Aspirin 81 81 MG Tablet Delayed Release 1 tablet Orally Once a day Active MiraLax (colon prep) 8.3 ounce ((238) grams mixed with Gatorade or Crystal Light orally begin at 5:00 p.m. the day before the procedure; Duration: 1 day 09/27/2019 Active Glucosamine 500 MG Capsule 1 capsule wit h a meal Orally Three times a day; Duration: 30 day(s) Active Allergy 4 MG Tablet 1 tablet as needed O rally every 6 hrs Active Vitamin C 500 MG Capsule as directed Orally Active Immunizations Vaccine Route Administration Date Status Comme nts Influenza Unknown 11/13/2018 Administered Social History Tobacco Use: Social History Observation Description Date Details (start date - stop date) Never Smoker NA - NA Social History Drugs/Alcohol: Social Info Question Answer Notes Alcohol Screen Did you have a drink containing alcohol in the past year? Yes How often did you have a drink containing alcohol in the past year? 2 to 3 times a week (3 points) How many drinks did you have on a typical day when you were drinking in the past year? 1 or 2 drinks (0 point) How often did you have 6 or more drinks on one occasion in the past year? Never (0 point) Points 3 Interpretation Positive Tobacco Use: Social Info Question Answer Notes Tobacco Use/Smoking Patient is a nonsmoker Additional Details Category Social Info Options Details Miscellaneous: Marital status: Occupation: retired teacher Problems Problem Type SNOMED Code ICD Code Onset Dates Problem Status W/U Status Risk Notes Problem Colon cancer screening (755911067) Colon cancer screening (Z12.11) Active confirmed Problem terminal carman current use of non-steroidal anti-inflammatory drug (152710428454674) prison (current) use of non-steroidal anti-inflammat ories (NSAID) (Z79.1) Active confirmed Problem Long-term current use of antiplatelet drug (418071465494624) Long-term use of aspirin therapy (Z79.82) Active confirmed Plan Of Treatment Future Test Test Name Order Date COLONOSCOPY 09/27/2019 Next Appt Details Provider Name:Rhett cardona , 03/19/2025 01:55:00 PM, [address] [place] [address], [address], [place], [address], Insurance Providers Payer Name Payer Address Payer Phone Subscriber Number Group Number Insured Name Patient Relationship to Insured Coverage Start Date Coverage End Date MEDICARE OF [place] [address] [place] [id number] [phone] [id number] VERONICA ZHENG Self - patient is the insured [facility] [address] [place] [address] [id number] VERONICA ZHENG Self - patient is the insured Medical (General) History Medical History History ICD Code irregular heartbeat osteoarthritis DVT/PE following arthroscopic knee surge ry, Coumadin x6 months Surgical History Surgery Date(Month/Year) bilateral knee replacements
--- OUTSIDE RECORDS SUMMARY | 2025-03-13 16:00 | XMS_ITS | Patient Health Record ---
Author Organization [facility] Address [address] [address] Care Team Providers Care Covering Machine Tender Name Role Phone Nava Pat MD Primary Care Provider Saloni Kovacs Unavailable [phone] Allergies Allergen (clinical drug ingredient) Drug/Non Drug Allergy documented on EMR Reaction Allergy Type Onset Date Status PENICILLIN Skin Rash Drug Allergy Active erythromycin ERYTHROMYCIN Skin Rash Drug Allergy A ctive Reason For Referral No Information Medications Medication SIG (Take, Route, Frequency, Duration) Notes Start Date End Date Status Anastrozole 1 MG Oral; Duration: 90 Days Active Arnuity Ellipta 100 MCG/ACT Inhalation; Duration: 90 Days Active Turmeric Active Aletha Active Celecoxib 200 MG Oral; Duration: 30 Days Active Sertraline HCl 100 MG 1 tablet Orally On ce a day; Duration: 90 days Active Aleve 220 MG 1 tablet as needed O rally 24 Active Flonase 50 MCG/ACT 1 spray in each nost ril Nasally Once a day Active Centrum - Orally [...] W/U Status Risk Notes Problem Postmenopausal state (48006295) Asymptomatic menopausal state (Z78.0) Active confirmed Problem Postmenopausal atrophic vaginitis (90080333) Postmenopausal atrophic vaginitis (N95.2) Active confirmed Problem Intraductal carcinoma in situ of right breast (0144832062028648 ) 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 Problem Osteoarthritis (510959309) Unspecified osteoarthritis, unspecified site (M19.90) Active confirmed Problem Screening for malignant neoplasm of breast (742227238) Encounter for screening mammogram for malignant neoplasm of breast (Z12.31) Active confirmed Problem Screening for osteoporosis (298625673) Encounter for screening for osteoporosis (Z13.820) Active confirmed Problem Cardiac arrhythmia (794240668) Unspecified cardiac dysrhythmia (427.9) Active confirmed Diag Problem Asthma (disorder) (073819100) Asthma, unspecified, unspecified status (493.90) Active confirmed Major Problem Menopausal symptom (26158061) Symptomatic menopausal or female climacteric states (627.2) Active confirmed Major Problem Osteoarthritis (933162045) Osteoarthrosis, unspecified whether generalized or localized, unspecified site (715.90) Active confirmed Major Problem Gynecological examination normal (072876675980161) Routine gynecological examination (V72.31) Active confirmed Major Problem Screening for malignant neoplasm of colon (056487919) Special screening for malignant neoplasms, colon (V76.51) Active confirmed Major Vital Signs Temperature 97.7 degrees Fahrenheit 09/21/2024 Blood pressure diastolic 84 mm Hg 09/21/2024 Height 69.5 in 09/21/2024 Blood pressure systolic 134 mm Hg 09/21/2024 Weight 262 lbs 09/21/2024 BMI 38.13 kg/m2 09/21/2024 Encounters Encounter Location Date Provider Diagnosis [address] [place] [address] 09/21/2024 Saloni Loving Encounter for gynecological examination (general) (routine) without abnormal findings Z01.419 ; Encounter for screening mammogram for malignant neoplasm of breast Z12.31 ; Intraductal carcinoma in situ of right breast D05.11 and Dense breasts, unspecified R92.30 Total [facility] [address] [place] [address] 06/22/2024 Saloni Loving Assessments Encounter Date Diagnosis (ICD Code) Assessment Notes Treatment Notes Treatment Clinical Notes Section Notes 09/21/2024 Encounter for gynecological examination (general) (routine) without abnormal findings (ICD-10 - Z01.419) NO PAP TEST, DUE IN 2025. 09/21/2024 Encounter for screening mammogram for malignant neoplasm of breast (ICD-10 - Z12.31) REGULAR MAMMOGRAMS AND SBE'S WERE RECOMMENDED. 09/21/2024 Intraductal carcinoma in situ of right breast (ICD-10 - D05.11) CONTINUE FOLLOW UP AT [facility]. 09/21/2024 Dense breasts, unspecified (ICD-10 - R92.30) DISCUSSED DENSE BREASTS ON MAMMOGRAM AND ITS IMPLICATIONS. 3D MAMMOGRAMS WERE RECOMMENDED. Plan Of Treatment Pending Test Test Name Order Date MAMMOGRAM, SCREENING 09/10/2022 MAMMOGRAM, SCREENING 09/20/2023 MAMMOGRAM, SCREENING 01/24/2015 Urinalysis 06/28/2018 THIN PREP,HPV,HARI IF HPV+ (>29YR)(SCRN) 03/23/2017 BONE DENSITY 09/08/2021 MM Digital Mammo Screening 09/10/2022 MM Digital Mammo Screening 09/08/2021 MM Digital Mammo Screening 09/21/2024 MM Digital Mammo Screening 09/20/2023 Next Appt Details Provider Name:Saloni Cueva rafaela, 09/28/2025 10:40:00 AM, [address], [place], [address], Insurance Providers Payer Name Payer Address Payer Phone Subscriber Number Group Number Insured Name Patient Relationship to Insured Coverage Start Date Coverage End Date MEDICARE [address] [place] [id number] VERONICA ZHENG Self - patient is the insured [facility] [address] [place] [address] [id number] VERONICA ZHENG Self - patient is the insured Medical (General) History Medical History History ICD Code Cardiac arrhythmia, unspecified I49.9 Unspecified osteoarthritis, unspecified site M19.90 Other asthma J45.998 Menopausal and female climacteric states N95.1 Anxiety disorder, unspecified F41.9 Adjustment disorder with anxiety F43.22 Postmenopausal atrophic vaginitis N95.2 Unspecified osteoarthritis, unspecified site M19.90 Asymptomatic menopausal state Z78.0 Intraductal carcinoma in situ of right b reast D05.11 Pain in right hip M25.551 Surgical History Surgery Date(Month/Year) [place] [facility] Lt foot Surgery Lt knee surgery x2 Colonoscopy Bilateral Tubal Ligation Screw Removal from Loose Plate in Foot Rt Knee Replacement 08/03/2018 Lt Knee Hardware removal 10/2018 Lt Knee Replacement 12/2017 Right Breast Bx 12/21/23 Hospitalization History Reason Date(Month/Year) See Surgical Hx 3 Vaginal Deliveries
== END 2025-03-13 13:37 | disposition home or self-care (01) ==
PROVIDERS: PCP Internal Medicine; Visit Provider Physician Assistant
DX: J18.9 Pneumonia, unspecified organism (principal)

== ENCOUNTER → 2025-03-13 11:58 | Outpatient (BNVA) | payer MEDICARE, OTHER, SELFPAY | PROVIDERS: PCP Internal Medicine; Visit Provider Physician Assistant | DX: J18.9 Pneumonia, unspecified organism (principal) | CPT/HCPCS: 99212 ==